=== PATIENT | female | born 1950 | race Caucasian/White ===

== ENCOUNTER 2021-09-24 00:51 | Inpatient (IN) | payer OTHER ==
[2021-09-24 01:38] LABS: Absolute Lymphocytes (CBC) 0.9 K/uL (0.7-4.9); Basophils % 0.2 % (0-1.3); Hematocrit 41.8 % (36.0-45.0); Lymphocytes % 10.6 % (15.3-44.8); MPV 8.8 fL (7.6-11.3); RBC Red Blood Cell Count 4.69 M/uL (3.86-4.86)
[2021-09-24 02:04] LABS: BUN Blood Urea Nitrogen 22 mg/dL (7-18); Bicarbonate 36 mmol/L (21-32); Glucose Level 102 mg/dL (74-106); Magnesium 2.1 mg/dL (1.8-2.4); NT PRO-BNP 499 pg/mL (<125); Potassium 3.8 mmol/L (3.5-5.1); Sodium Level 140 mmol/L (136-145); Thyroid Stimulating Hormone 0.571 uIU/mL (0.360-3.740); Troponin (Emerg Dept Use Only) < 0.02 ng/mL (0.0-0.045)
[2021-09-24 02:34] LABS: Urine Blood Trace-intact (Negative); Urine Glucose Negative (Negative); Urine Protein Negative (Negative); Urine Specific Gravity 1.025 (1.005-1.030); Urine pH 6.5 (5.0-7.0)
[2021-09-24 02:50] LABS: Urine Urothelial Cells <5 /HPF (NONE SEEN)
[2021-09-24 02:51] LABS: Urine Bacteria >50 /HPF (<20); Urine RBC <5 /HPF (NONE SEEN)
[2021-09-24] MEDS ORDERED: CEFTRIAXONE 1000 MG/VIAL ONE (02:51)
--- NOTE | 2021-09-24 03:00 | EDPHYS ---
Physician Documentation [facility] Name: Noelle Cummings Age: 71 yrs Sex: Female : 1950 Arrival Date: 09/24/2021 Time: 00:52 Bed 25 Private MD: ED Physician Neil Huston HPI: 09/24 01:01 This 71 yrs old Female presents to ER via Unassigned with complaints of rn weakness, tremor. 01:01 Reports yesterday began to feel generalized weakness with tremors in all 4 extremities. rn Reports took eliquis for first time the last 2 days and wasn't sure if this was the culprit. Reports generalized weakness and fatigue with coarse intention tremor that she has never had. No fever/cough/sob/abd pain. . Onset: The symptoms/episode began/occurred yesterday. Severity of symptoms: At their worst the symptoms were moderate in the emergency department the symptoms are unchanged. The patient has not experienced similar symptoms in the past. The patient has been recently seen by a physician:. Historical: - Allergies: 01:51 No Known Allergies; mr2 - Home Meds: 01:51 Diovan 40 mg Oral tab [Active]; gabapentin oral [Active]; Aspirin Oral [Active]; mr2 Clonidine Oral [Active]; Metoprolol Tartrate Oral [Active]; OxyContin Oral [Active]; Eliquis oral [Active]; - Immunization history:: Adult Immunizations up to date. - Social history:: Smoking status: Patient/guardian denies using tobacco. - Family history:: not pertinent. - Hospitalizations: : No recent hospitalization is reported. ROS: 01:01 Constitutional: Negative for fever, chills, and weight loss, Eyes: Negative for injury, rn pain, redness, and discharge, Neck: Negative for injury, pain, and swelling, Cardiovascular: Negative for chest pain, palpitations Respiratory: Negative for shortness of breath, cough, wheezing, and pleuritic chest pain, Abdomen/GI: Negative for abdominal pain, nausea, vomiting, diarrhea, and constipation, Back: Negative for injury and pain, : Negative for injury, bleeding, discharge, and swelling, MS/Extremity: Negative for injury and deformity, Skin: Negative for injury, rash, and discoloration, Neuro: Negative for headache, numbness, tingling, and seizure. Exam: 01:01 Constitutional: Overweight female, no acute distress Head/Face: Normocephalic, rn atraumatic. Eyes: Periorbital areas with no swelling, redness, or edema. ENT: dry MM Cardiovascular: Irregular rhythm, regular rate Respiratory: Mild tachypnea, no retractions, speaking full sentences. Abdomen/GI: Soft, non-tender Skin: Warm, dry MS/ Extremity: Pulses equal, no cyanosis. Neurovascular intact. Full, normal range of motion. 1+ edema bilateral lower ext Neuro: Awake and alert, GCS 15, oriented to person, place, time, and situation. Cranial nerves II-XII grossly intact. Motor strength 4/5 in all extremities. Sensory grossly intact. coarse intention tremor bilateral upper ext, only present in lower extremities when trying to sit up Vital Signs: 01:00 BP 132 / 88; Pulse 82; Resp 19; Temp 98.4; Pulse Ox 99% on NC; Weight 107.95 kg; Height mr2 5 ft. (152.40 cm); Pain 3/10; 01:00 Body Mass Index 46.48 (107.95 kg, 152.40 cm) mr2 MDM: 00:53 Patient medically screened. rn 02:56 Differential Diagnosis sepsis, UTI, dehydration, metabolic derangement. Data reviewed: rn vital signs, nurses notes, lab test result(s), EKG, radiologic studies, plain films, and as a result, I will admit patient. Data interpreted: groundwater monitoring technician: rate is 82 beats/min, rhythm is normal sinus rhythm, regular, with no ectopy, Interpretation: normal rate, normal rhythm, Pulse oximetry: on room air is 99 %. Interpretation: normal. Counseling: I had a detailed discussion with the patient and/or guardian regarding: the historical points, exam findings, and any diagnostic results supporting the discharge/admit diagnosis, lab results, radiology results, the need for further work-up and treatment in the hospital. Response to treatment: the patient's symptoms have mildly improved after treatment. Admission orders: after a detailed discussion of the patient's condition and case, the admit orders are written by me. 02:56 ED course: Patient too weak to even sit up without assistance. Cannot walk. Combination rn of UTI and dehydration. Will admit to hospitalist service for IV antibiotics and further evaluation.. 09/24 00:56 Order name: CBC with Diff; Complete Time: 02:06 rn 09/24 00:56 Order name: Basic Metabolic Panel; Complete Time: 02:06 rn 09/24 00:56 Order name: Urine Culture rn 09/24 00:56 Order name: Urine Microscopic Only; Complete Time: 02:54 rn 09/24 00:56 Order name: BNP; Complete Time: 02:06 rn 09/24 00:56 Order name: Troponin (emerg Dept Use Only); Complete Time: 02:06 rn 09/24 00:56 Order name: Magnesium; Complete Time: 02:06 rn 09/24 00:56 Order name: TSH; Complete Time: 02:06 rn 09/24 00:56 Order name: T4 Free; Complete Time: 02:06 rn 09/24 00:56 Order name: Blood Culture Adult (2) rn 09/24 00:56 Order name: Procalcitonin; Complete Time: 02:43 rn 09/24 01:18 Order name: Lactate; Complete Time: 02:06 [facility] 09/24 02:29 Order name: COVID-19 SARS RT PCR (Document "Date of Onset" if Symptomatic) rn 09/24 02:33 Order name: Urine Dipstick-Ancillary; Complete Time: 02:43 EDMS 09/24 00:56 Order name: IV Start; Complete Time: 01:00 rn 09/24 00:56 Order name: Cardiac monitoring; Complete Time: 01:00 rn 09/24 00:56 Order name: O2 Sat Monitoring; Complete Time: 01:00 rn 09/24 00:56 Order name: Urine Dipstick-Ancillary (obtain specimen); Complete Time: 02:27 rn 09/24 00:56 Order name: EKG; Complete Time: 00:58 rn 09/24 00:56 Order name: EKG - Nurse/Tech; Complete Time: 01:00 rn 09/24 00:56 Order name: XRAY Chest (1 view) rn Administered Medications: 03:00 Drug: Rocephin (cefTRIAXone) 1 grams Route: IV; Rate: calculated rate; Site: left mr2 antecubital; 05:18 Follow up: IV Status: Completed infusion; IV Intake: 10ml df1 Disposition Summary: 09/24/21 02:59 Hospitalization Ordered Hospitalization Status: Inpatient Admission rn Provider: Stefan Huston rn Condition: Stable rn Problem: new rn Symptoms: have improved rn Bed/Room Type: Standard rn Location: Telemetry/MedSurg (Inpatient)(09/24/21 10:41) dw Room Assignment: 202(09/24/21 10:41) dw Diagnosis - UTI/ Urinary tract infection, site not specified rn - Tremor, unspecified rn - Muscle weakness (generalized) rn Forms: - Medication Reconciliation Form rn - SBAR form rn Signatures: Dispatcher [employer] EDMS Leyda Spangler RN RN Juanis Lopez RN RN Neil Blank MD MD rn Reynard, Mike RN RN mr2 Elizabeth Simmons df1 Corrections: (The following items were deleted from the chart) 03:19 02:59 Telemetry/MedSurg (Inpatient) rn mw 03:19 02:59 rn mw 10:41 03:19 BR ER HOLD mw dw 10:41 03:19 ERHOLD- mw
--- NOTE | 2021-09-24 03:00 | ER ---
Nurse's Notes [facility] Name: Noelle Cummings Age: 71 yrs Sex: Female : 1950 Arrival Date: 09/24/2021 Time: 00:52 Bed 25 Private MD: Diagnosis: UTI/ Urinary tract infection, site not specified;Tremor, unspecified;Muscle weakness (generalized) Presentation: 09/24 01:00 Chief complaint: Patient states: pt states she started a new med this week and has mr2 become shaky and weak when trying to walk or bear weight. Ebola Screen: Patient negative for fever greater than or equal to 101.5 degrees Fahrenheit, and additional compatible Ebola Virus Disease symptoms Patient denies exposure to infectious person. Patient denies travel to an Ebola-affected area in the 21 days before illness onset. Initial Sepsis Screen: Does the patient meet any 2 criteria? No. Patient's initial sepsis screen is negative. Does the patient have a suspected source of infection? No. Patient's initial sepsis screen is negative. Risk Assessment: Do you want to hurt yourself or someone else? Patient reports no desire to harm self or others. Onset of symptoms was September 18, 2021. 01:00 Method Of Arrival: EMS: [facility] mr2 01:00 Acuity: JAY 3 mr2 Triage Assessment: 01:51 General: Appears uncomfortable, Behavior is calm, cooperative. Pain: Denies pain. mr2 Historical: - Allergies: 01:51 No Known Allergies; mr2 - Home Meds: 01:51 Diovan 40 mg Oral tab [Active]; gabapentin oral [Active]; Aspirin Oral [Active]; mr2 Clonidine Oral [Active]; Metoprolol Tartrate Oral [Active]; OxyContin Oral [Active]; Eliquis oral [Active]; - Immunization history:: Adult Immunizations up to date. - Social history:: Smoking status: Patient/guardian denies using tobacco. - Family history:: not pertinent. - Hospitalizations: : No recent hospitalization is reported. Screenin:57 Abuse screen: Denies threats or abuse. Denies injuries from another. Nutritional mr2 screening: No deficits noted. Tuberculosis screening: No symptoms or risk factors identified. Fall Risk IV access (20 points). Ambulatory Aid- Crutches/Cane/Walker (15 pts). Gait- Impaired (20 pts.). Assessment: 01:57 Neuro: Reports weakness. Musculoskeletal: Reports weakness in right arm, left arm, mr2 right leg and left leg. 04:20 General: Patient placed in hospital bed.. tw5 Vital Signs: 01:00 BP 132 / 88; Pulse 82; Resp 19; Temp 98.4; Pulse Ox 99% on NC; Weight 107.95 kg; Height mr2 5 ft. (152.40 cm); Pain 3/10; 01:00 Body Mass Index 46.48 (107.95 kg, 152.40 cm) mr2 ED Course: 00:52 Patient arrived in ED. mw2 00:53 Neil Huston MD is Attending Physician. rn 01:00 No provider procedures requiring assistance completed. Inserted saline lock: 20 gauge mr2 in left antecubital area, using aseptic technique. 01:10 XRAY Chest (1 view) Sent. df1 01:12 XRAY Chest (1 view) In Process Unspecified. EDMS 01:46 Dale Paulson RN is Primary Nurse. mr2 01:51 Triage completed. mr2 01:51 Arm band placed on. mr2 01:57 Patient has correct armband on for positive identification. Call light in reach. Side mr2 rails up X2. Adult w/ patient. 02:27 Urine Microscopic Only Sent. df1 02:27 Urine Culture Sent. df1 02:59 Stefan Huston MD is Hospitalizing Provider. rn Administered Medications: 03:00 Drug: Rocephin (cefTRIAXone) 1 grams Route: IV; Rate: calculated rate; Site: left mr2 antecubital; 05:18 Follow up: IV Status: Completed infusion; IV Intake: 10ml df1 Intake: 05:18 IV: 10ml; Total: 10ml. df1 Outcome: 02:59 Decision to Hospitalize by Provider. rn 12:40 Patient left the ED. iw Signatures: Dispatcher [employer] EDMS Naz Molina RN RN iw Neil Huston MD MD rn [place], MyKena mw2 Dale Paulson RN RN mr2 MoriscjElizabeth df1 Adriana Hicks tw5 Corrections: (The following items were deleted from the chart) 14:03 01:00 Coronavirus screen: Vaccine status: Patient reports receiving the 2nd dose of the iw covid vaccine. mr2
--- NOTE | 2021-09-24 03:59 | P.HP ---
Certification for Inpatient Patient admitted to: Observation With expected LOS: <2 Midnights Patient will require the following post-hospital care: None Practitioner: I am a practitioner with admitting privileges, knowledge of patient current condition, hospital course, and medical plan of care. Services: Services provided to patient in accordance with Admission requirements found in Title 42 Section 412.3 of the Code of Federal Regulations <Julio COswaldo Still - Last Filed: 09/24/21 03:51> Patient History Date of Service: 09/24/21 Primary Care Provider: Unknown Dr. galina Rivera Reason for admission: UTI, weakness History of Present Illness: 71-year-old female with history of atrial fibrillation on chronic anticoagulation, hypertension, chronic pain presents emergency department for chills/tremors. Patient reports symptoms began today, does report that she had urinary symptoms approximate 1 week ago that resolved. Patient was evaluated in the emergency department labs were significant for CO2 36 BUN 22 GFR 89 BNP 499 urinalysis with greater than 50 bacteria nitrite +1+ leukoesterase Covid test negative chest x-ray appears to be unremarkable at this time. Plan was for discharge from emergency room but patient extremely weak, unable to sit up without assistance or ambulate. ED provider wishes to admit under observation for UTI, weakness. - Past Medical/Surgical History -: A. fib on chronic anticoagulation therapy -: Hypertension -: Chronic pain -: Back surgery -: Hip surgery Psychosocial/ Personal History: Patient lives at home, has some family members living with her as well - Family History Mother -: Cancer Father -: Heart disease, Stroke Sister -: Cancer - Social History Smoking Status: Never smoker Alcohol use: No CD- Drugs: No Caffeine use: Yes Place of Residence: Home <Oswaldo Bunch - Last Filed: 09/24/21 03:51> Date of Service: 09/24/21 <Stefan Huston - Last Filed: 09/24/21 13:38> Allergies No Known Allergies Allergy (Verified 09/24/21 05:19) Review of Systems 10-point ROS is otherwise unremarkable General: Chills, Weakness, Malaise <Oswaldo Bunch - Last Filed: 09/24/21 03:51> Physical Examination - Physical Exam General: Alert, In no apparent distress, Obese HEENT: Atraumatic, PERRLA, Mucous membr. moist/pink, EOMI, Sclerae nonicteric Neck: Supple, 2+ carotid pulse no bruit, No LAD, Without JVD or thyroid abnormality Respiratory: Clear to auscultation bilaterally, Normal air movement Cardiovascular: Regular rate/rhythm, Normal S1 S2 Gastrointestinal: Normal bowel sounds, No tenderness Musculoskeletal: No tenderness Integumentary: No rashes Neurological: Normal speech, Normal strength at 5/5 x4 extr, Normal tone, Normal affect - Studies Laboratory Data (last 24 hrs) 09/24/21 01:00: Sodium 140, Potassium 3.8, BUN 22 H, Creatinine 0.65, Glucose 102, Magnesium 2.1 09/24/21 01:00: WBC 8.10, Hgb 13.3, Hct 41.8, Plt Count 176 <Oswaldo Bunch - Last Filed: 09/24/21 03:51> - Studies Laboratory Data (last 24 hrs) 09/24/21 01:00: Sodium 140, Potassium 3.8, BUN 22 H, Creatinine 0.65, Glucose 102, Magnesium 2.1 09/24/21 01:00: WBC 8.10, Hgb 13.3, Hct 41.8, Plt Count 176 <Stefan Huston - Last Filed: 09/24/21 13:38> Assessment and Plan - Plan Assessment: Generalized weakness, malaise secondary to urinary tract infection Atrial fibrillation on chronic anticoagulation therapy Hypertension chronic pain Plan: Generalized weakness, malaise secondary to urinary tract infection: Continue with IV Rocephin, urine cultures obtained. Will have patient up with physical therapy. Patient reports that whenever she becomes ill she has episodes like this where she becomes extremely weak. Patient would likely benefit from home health with physical therapy, will await further recommendations from physical therapy evaluation. Atrial fibrillation on chronic anticoagulation therapy: Continue metoprolol and Eliquis. Monitor on telemetry, rate controlled at this time. Hypertension: Continue metoprolol, obtain verify other home medications. chronic pain: Continue with Rochelle at this time, obtain verify home medications. Patient reports that she takes oxycodone 7.5 mg. We will need to verify. DVT PPX: Continue Eliquis Code status: Full code Discharge Plan: Home Plan to discharge in: 24 Hours - Advance Directives Does patient have a Living Will: No Does patient have a Durable POA for Healthcare: No - Code Status/Comfort Care Code Status Assessed: Yes (full code) Critical Care: No Time Spent Managing Pts Care (In Minutes): 55 <Oswaldo Bunch - Last Filed: 09/24/21 03:51> - Plan Patient seen and examined on rounds this morning. Patient reports feeling slight improvement, however has not tried to get out of bed yet. Reports felt like her muscles are giving out under concerned about going home Physical therapy consulted patient may need home health /PT vs SNF <Stefan Huston - Last Filed: 09/24/21 13:38>
[2021-09-24] MEDS ORDERED: HYDROCODONE/APAP 7.5/325 MG TAB PO PRN (05:10)
[2021-09-24] MEDS ORDERED: ACETAMINOPHEN 500 MG TAB PO PRN (05:10)
[2021-09-24] MEDS ORDERED: ONDANSETRON 4 MG/2 ML VIAL IV PRN (05:10)
[2021-09-24] MEDS ORDERED: METOPROLOL TAR 25 MG TAB PO SCH (06:00)
--- NOTE | 2021-09-24 08:46 | RAD REPORT ---
EXAM DESCRIPTION: RAD - Chest Single View - 09/24/2021 1:11 am CLINICAL HISTORY: weakness Chest pain. COMPARISON: No comparisons FINDINGS: Portable technique limits examination quality. Mild pulmonary edema suspected. The heart is mildly enlarged in size. No displaced fractures. IMPRESSION: Mild CHF versus volume overload.
[2021-09-24] MEDS ORDERED: CEFTRIAXONE 1 GM/NS 50 ML 1 GM/50 ML BAG IV SCH (09:00)
[2021-09-24] MEDS: METOPROLOL TAR 25 MG TAB PO SCH ×2 (09:00→19:58)
[2021-09-24] MEDS: APIXABAN 5 MG TABLET PO SCH ×3 (09:00→19:58)
[2021-09-24] MEDS ORDERED: POTASSIUM CL SA 10 MEQ TAB PO ONE ×2 (09:12→09:30)
[2021-09-24] MEDS ORDERED: METOPROLOL TAR 25 MG TAB ONE (09:30)
[2021-09-24] MEDS ORDERED: APIXABAN 5 MG TABLET ONE (09:30)
[2021-09-24 13:52] VITALS: BMI 46.3
[2021-09-24] MEDS ORDERED: PNEUMOCOCCAL VACCINE 0.5 ML IMVAC ONE (14:00)
[2021-09-24] MEDS: CEFTRIAXONE 1 GM/NS 50 ML 1 GM/50 ML BAG IV SCH (19:58)
[2021-09-25] MEDS ORDERED: VANCOMYCIN/NS 1 gm 1 GM/250 ML BAG IVPB SCH (04:30)
[2021-09-25] MEDS ORDERED: VANCOMYCIN 1 GM/VIAL ONE (04:49)
[2021-09-25] MEDS ORDERED: VANCOMYCIN 2 GM in NA CHLORIDE 0.9% 500 ML IVPB SCH (05:00)
[2021-09-25 05:40] LABS: Absolute Lymphocytes (CBC) 1.5 K/uL (0.7-4.9); Basophils % 0.4 % (0-1.3); Hematocrit 42.6 % (36.0-45.0); Lymphocytes % 23.1 % (15.3-44.8); MPV 8.8 fL (7.6-11.3); RBC Red Blood Cell Count 4.85 M/uL (3.86-4.86)
--- NOTE | 2021-09-25 06:01 | P.PN ---
Date of Service: 09/25/21 Subjective: No acute events overnight. Patient reports feeling better, little more energy, able to move around in bed little bit more. Has not gotten up out of bed yet this morning Worked with physical therapy yesterday, they recommended inpatient rehab. Patient unsure, states she is open to the idea, but would prefer to go home if she improves enough. Blood cultures all preliminary positive for gram-positive cocci continues with chronic pain /neuropathy ROS: 10 point ROS as noted above, otherwise negative Physical exam GEN: Alert, oriented, NAD HEENT: Normal conjunctiva, sclera anicteric CV: Regular rate and rhythm, no edema Pulm: Nonlabored respiration on 2L NC ABD: Soft, nontender, nondistended MSK: No joint tenderness Neuro: Normal speech, normal affect Problem List Generalized weakness, malaise secondary to urinary tract infection Atrial fibrillation on chronic anticoagulation therapy Hypertension chronic pain Chronic neuropathy Continue Rocephin, urine culture growing gram-negative rods Blood cultures growing gram-positive cocci, suspect contamination since it is different than was grown in her urine. Infectious disease consulted Repeat blood culture today Empirically started on vancomycin overnight Otherwise she feels that she is making some improvement Physical therapy evaluated her yesterday, recommend inpatient rehab. Patient was open to the idea, however would prefer to go home She wants to see how she does with physical therapy today since she is feeling better Continue home metoprolol, Eliquis, telemetry, home pain medicationoxycodone/gabapentin VTE: Eliquis Code: full Dispo: inpatient rehab consulted, anticipate DC in 1-2 days, pending culture results Time Spent Managing Pts Care (In Minutes): 35
[2021-09-25 06:02] LABS: ALT/SGPT 17 U/L (12-78); AST/SGOT 17 U/L (15-37); Albumin 3.1 g/dL (3.4-5.0); Alkaline Phosphatase 52 U/L (45-117); BUN Blood Urea Nitrogen 14 mg/dL (7-18); Bicarbonate 32 mmol/L (21-32); Bilirubin Total 0.4 mg/dL (0.2-1.0); Glucose Level 106 mg/dL (74-106); Potassium 3.7 mmol/L (3.5-5.1); Sodium Level 140 mmol/L (136-145)
[2021-09-25] MEDS: APIXABAN 5 MG TABLET PO SCH ×2 (08:00→19:49)
[2021-09-25] MEDS: METOPROLOL TAR 25 MG TAB PO SCH ×2 (08:01→19:50)
[2021-09-25] MEDS ORDERED: KCL 20 MEQ/100 mL IVPB 20 MEQ/100 ML BAG IV SCH (09:00)
[2021-09-25] MEDS ORDERED: POTASSIUM CL SA 10 MEQ TAB PO ONE (09:00)
[2021-09-25] MEDS: GABAPENTIN 300 MG CAP PO SCH ×3 (09:12→19:49)
[2021-09-25] MEDS: FLUOXETINE 10 MG CAP PO SCH ×2 (09:12→19:49)
--- NOTE | 2021-09-25 10:00 | P.CNS ---
Date of Consult: 09/25/21 Primary Care Provider: Unknown Dr. galina Rivera Chief Complaint: UTI, weakness History of Present Illness: The patient is a 71-year-old female with a past medical history of atrial fibrillation on chronic anticoagulation, hypertension, and chronic pain who pres ented to the emergency department secondary to chills/tremors. Of note patient also reported urinary symptoms approximately 1 week ago which she states has since resolved. In the ED labs are significant for CO2 of 36, BUN 22, GFR 89, and urinalysis with positive bacteria nitrates and leuk esterase. The initial plan was for the patient to be discharged however due to extreme weakness she was admitted for further observation. Blood cultures obtained on 09/24 grew gram-positive cocci, urine culture growing gram-negative rods. Repeat blood cultures pending. Patient empirically started on vancomycin and Rocephin. Patient currently denies shortness of breath, chest pain, nausea/vomiting/diarrhea/dysuria/urinary frequency/urgency. Patient reports chronic pain 2 pack/hips. Allergies No Known Allergies Allergy (Verified 09/24/21 05:19) Home Medications: ALPRAZolam [Xanax*] 0.5 mg PO TID 09/24/21 Apixaban [Eliquis] 5 mg PO BID 09/24/21 Cyclobenzaprine HCl [Flexeril] 5 mg PO BID PRN 09/24/21 Fluoxetine HCl [Prozac] 30 mg PO BID 09/24/21 Fluticasone/Salmeterol [Advair 250-50 Diskus] 1 puff IH BID 09/24/21 Gabapentin [Neurontin] 800 mg PO QID 09/24/21 Ipratropium/Albuterol Sulfate [Combivent Respimat 20-100 Mcg] 2 puff IH TID 09/24/21 Metoprolol Tartrate [Lopressor*] 50 mg PO BID 09/24/21 Oxycodone HCl/Acetaminophen [Oxycodone-Acetaminophn 7.5-325] 1 tab PO TID PRN 09/24/21 Tiotropium [place] [Spiriva] 2 puff IH BID 09/24/21 Valsartan/Hydrochlorothiazide [Diovan Hct 160-12.5 mg Tab] 1 tab PO BID 09/24/21 cloNIDine HCL [Clonidine HCl] 0.1 mg PO Q6H PRN 09/24/21 hydroCHLOROthiazide [Hydrochlorothiazide*] 1 cap PO DAILY 09/24/21 - Past Medical/Surgical History -: A. fib on chronic anticoagulation therapy -: Hypertension -: Chronic pain -: COPD -: Back surgery -: Lt hip surgery with titanium plate -: Back surgery -: Hip surgery Psychosocial/ Personal History: Patient lives at home, has some family members living with her as well - Family History Mother Medical History: Cancer Father Medical History: Heart disease, Stroke Sister Medical History: Cancer - Social History Alcohol use: No CD- Drugs: No Caffeine use: No Place of Residence: Home Review of Systems 10-point ROS is otherwise unremarkable Physical Examination Temp Pulse Resp BP Pulse Ox 97.3 F 65 20 131/56 L 95 09/25/21 08:00 09/25/21 08:01 09/25/21 09:02 09/25/21 08:01 09/25/21 09:02 General: Alert, In no apparent distress, Obese HEENT: Atraumatic, Normocephalic Neck: Supple, 2+ carotid pulse no bruit Respiratory: Clear to auscultation bilaterally, Normal air movement Cardiovascular: No edema, Normal pulses, Regular rate/rhythm Gastrointestinal: Normal bowel sounds, Soft and benign Musculoskeletal: No clubbing, No swelling, No contractures Integumentary: Other (Left breast skin fold skin candidiasis) Neurological: Normal speech, Sensation intact Laboratory Data (last 24 hrs) 09/25/21 05:13: Sodium 140, Potassium 3.7, BUN 14, Creatinine 0.63, Glucose 106, Total Bilirubin 0.4, AST 17, ALT 17, Alkaline Phosphatase 52 09/25/21 05:13: WBC 6.40 D, Hgb 13.8, Hct 42.6, Plt Count 168 Conclusions/Impression: Antibiotics: Vancomycin Start: 09/25 Rocephin Start: 09/24 Assessment/plan Gram-positive bacteremia Blood cultures obtained on 09/24 growing gram-positive cocci, awaiting full report. Continue empiric vancomycin at this time with a trough goal of 12-17. Repeat blood cultures obtained on 09/25 pending. Due to patient's clinical condition and lack of temperature, sepsis, or leukocytosis positive blood cultures could possibly be contamination. Urinary tract infection Urine culture growing a gram-negative rods, awaiting full report. Continue IV Rocephin will tailor antibiotics based off full culture report. Patient will need antibiotics for 5-7 days. Left breast skin fold skin candidiasis Continue nystatin powder for 1 week. Protein caloric malnutrition Recommend supplemental Ensure protein drinks Medical management per primary team Plan of care discussed with Dr. hernandez Thank you for consultation.
[2021-09-25] MEDS ORDERED: NYSTATIN PWDR 100000 UNIT/GM TOP PRN (10:06)
[2021-09-25] MEDS ORDERED: VANCOMYCIN/NS 1 gm 1 GM/250 ML BAG IVPB ONE (10:30)
--- NOTE | 2021-09-25 11:24 | EKG ---
Test Date: 2021-09-24 Test Time: 00:46:11 Lead Dental Assistant: JAKE MEASUREMENT RESULTS: Intervals: Rate: 83 WY: 140 QRSD: 66 QT: 390 QTc: 458 [place]: P: 80 WY: 140 QRS: 51 T: 58 INTERPRETIVE STATEMENTS: Normal sinus rhythm with sinus arrhythmia Normal ECG No previous ECG available for comparison Electronically Signed On 09-25-21 11:20:41 HAZARDOUS SUBSTANCES SCIENTIST by Adama Anthony
--- NOTE | 2021-09-25 11:24 | EKG ---
Test Date: 2021-09-24 Test Time: 01:06:14 Tobacco Drying Machine Operator: JOLEEN MEASUREMENT RESULTS: Intervals: Rate: 76 TN: 142 QRSD: 66 QT: 362 QTc: 407 [place]: P: 108 TN: 142 QRS: 56 T: 52 INTERPRETIVE STATEMENTS: Sinus rhythm with premature supraventricular complexes Nonspecific T wave abnormality Abnormal ECG Compared to ECG 09/24/2021 00:46:11 Atrial premature complex(es) now present T-wave abnormality now present Sinus arrhythmia no longer present Electronically Signed On 09-25-21 11:20:39 SERICULTURIST by Adama Anthony
[2021-09-25] MEDS: LACTOBACILLUS/ACIDOPHILUS TAB PO SCH (19:49)
[2021-09-25] MEDS: CEFTRIAXONE 1 GM/NS 50 ML 1 GM/50 ML BAG IV SCH (19:49)
[2021-09-26] MEDS ORDERED: VANCOMYCIN 2 GM in NA CHLORIDE 0.9% 500 ML IVPB SCH (05:00)
--- NOTE | 2021-09-26 05:53 | P.PN ---
Date of Service: 09/26/21 Subjective: No acute events overnight. Overall improving, feeling better Continues with generalized weakness, unsteadiness, working with physical therapy. Very motivated Looking to go to inpatient rehab when approved Remains afebrile, blood cultures growing staph epidermidis, no source of infection for this, repeat blood culture negative ROS: 10 point ROS as noted above, otherwise negative Physical exam GEN: Alert, oriented, NAD HEENT: Normal conjunctiva, sclera anicteric CV: Regular rate and rhythm, no edema Pulm: Nonlabored respiration on 2L NC ABD: Soft, nontender, nondistended MSK: No joint tenderness Integumentary: mild intertrigo under L breast Neuro: Normal speech, normal affect Problem List Generalized weakness, malaise secondary to urinary tract infection Paroxysmal atrial fibrillation on Eliquis Left breast intertrigo Hypertension chronic pain Chronic neuropathy Continue Rocephin, urine culture growing pansensitive E. coli. Blood cultures grew gram-positive cocci, speciation staph epidermidis Infectious disease consulted, in agreement that this is contaminant. Repeat blood culture was obtained 1-2 hours after initial dose of vancomycin and is remained negative We will discontinue empiric vancomycin Patient reports continued improvement Continues to work with physical therapy, which are recommending inpatient rehab Continue home metoprolol, Eliquis, telemetry, home pain medica tionoxycodone/gabapentin VTE: Eliquis Code: full Dispo: inpatient rehab once approved Time Spent Managing Pts Care (In Minutes): 35
[2021-09-26 06:01] LABS: Absolute Lymphocytes (CBC) 1.6 K/uL (0.7-4.9); Basophils % 0.8 % (0-1.3); Hematocrit 42.5 % (36.0-45.0); Lymphocytes % 27.6 % (15.3-44.8); MPV 8.9 fL (7.6-11.3); RBC Red Blood Cell Count 4.78 M/uL (3.86-4.86)
[2021-09-26 06:21] LABS: Albumin 3.1 g/dL (3.4-5.0); Bilirubin Total 0.3 mg/dL (0.2-1.0); Protein, Total 7.1 g/dL (6.4-8.2)
[2021-09-26 06:22] LABS: Potassium 3.8 mmol/L (3.5-5.1)
[2021-09-26] MEDS: FLUOXETINE 10 MG CAP PO SCH (08:49)
[2021-09-26] MEDS: LACTOBACILLUS/ACIDOPHILUS TAB PO SCH (08:50)
[2021-09-26] MEDS: GABAPENTIN 300 MG CAP PO SCH ×2 (08:50→14:17)
[2021-09-26] MEDS: METOPROLOL TAR 25 MG TAB PO SCH (08:51)
[2021-09-26] MEDS: APIXABAN 5 MG TABLET PO SCH (08:52)
[2021-09-26] MEDS ORDERED: KCL 20 MEQ/100 mL IVPB 20 MEQ/100 ML BAG IV SCH (09:00)
[2021-09-26 10:05] VITALS: O2SAT 97
--- NOTE | 2021-09-26 11:20 | P.PN ---
Subjective Date of Service: 09/26/21 Primary Care Provider: Unknown Dr. galina Rivera Chief Complaint: UTI, weakness Patient seen examined at bedside, blood cultures growing Staph epi likely contamination. Repeat blood culture showed no growth at @24hr. Based on patient's clinical picture,there is low clinical suspicion for true bacteremia. As such recommend discontinuing vancomycin. Patient states she is feeling well today and denies any acute complaints. Review of Systems 10-point ROS is otherwise unremarkable Physical Examination - Vital Signs Temperature: 97.5 F Blood Pressure: 113/63 Pulse: 64 Respirations: 15 Pulse Ox (%): 97 - Studies Laboratory Last Values WBC 6.40 K/uL (4.3-10.9) D 09/25/21 05:13 RBC 4.85 M/uL (3.86-4.86) 09/25/21 05:13 Hgb 13.8 g/dL (12.0-15.0) 09/25/21 05:13 Hct 42.6 % (36.0-45.0) 09/25/21 05:13 MCV 87.8 fL (80-100) 09/25/21 05:13 MCH 28.5 pg (27.0-35.0) 09/25/21 05:13 MCHC 32.4 g/dL (32.0-36.0) 09/25/21 05:13 RDW 13.9 % (12.1-15.2) 09/25/21 05:13 Plt Count 168 K/uL (152-406) 09/25/21 05:13 MPV 8.8 fL (7.6-11.3) 09/25/21 05:13 Neutrophils % 63.6 % (41.7-73.7) 09/25/21 05:13 Lymphocytes % 23.1 % (15.3-44.8) 09/25/21 05:13 Monocytes % 11.9 % (3.3-12.3) 09/25/21 05:13 Eosinophils % 1.0 % (0-4.4) 09/25/21 05:13 Basophils % 0.4 % (0-1.3) 09/25/21 05:13 Absolute Neutrophils 4.1 K/uL (1.8-8.0) 09/25/21 05:13 Absolute Lymphocytes 1.5 K/uL (0.7-4.9) 09/25/21 05:13 Absolute Monocytes 0.8 K/uL (0.1-1.3) 09/25/21 05:13 Absolute Eosinophils 0.1 K/uL (0-0.5) 09/25/21 05:13 Absolute Basophils 0.0 K/uL (0-0.5) 09/25/21 05:13 Sodium 140 mmol/L (136-145) 09/25/21 05:13 Potassium 3.7 mmol/L (3.5-5.1) 09/25/21 05:13 Chloride 102 mmol/L (98-107) 09/25/21 05:13 Carbon Dioxide 32 mmol/L (21-32) 09/25/21 05:13 BUN 14 mg/dL (7-18) 09/25/21 05:13 Creatinine 0.63 mg/dL (0.55-1.3) 09/25/21 05:13 Estimated GFR > 90 mL/min (=/>90) 09/25/21 05:13 Glucose 106 mg/dL (74-106) 09/25/21 05:13 Lactic Acid 1.0 mmol/L (0.4-2.0) 09/24/21 01:00 Calcium 9.2 mg/dL (8.5-10.1) 09/25/21 05:13 Magnesium 2.1 mg/dL (1.8-2.4) 09/24/21 01:00 Total Bilirubin 0.4 mg/dL (0.2-1.0) 09/25/21 05:13 AST 17 U/L (15-37) 09/25/21 05:13 ALT 17 U/L (12-78) 09/25/21 05:13 Alkaline Phosphatase 52 U/L (45-117) 09/25/21 05:13 Rapid Troponin I < 0.02 ng/mL (0.0-0.045) 09/24/21 01:00 NT-Pro-B Natriuret Pep 499 pg/mL (<125) H 09/24/21 01:00 Serum Total Protein 7.0 g/dL (6.4-8.2) 09/25/21 05:13 Albumin 3.1 g/dL (3.4-5.0) L 09/25/21 05:13 Globulin 3.9 g/dL (2.3-3.5) H 09/25/21 05:13 Albumin/Globulin Ratio 0.8 (1.1-1.8) L 09/25/21 05:13 Procalcitonin < 0.05 ng/mL (<0.050) 09/24/21 01:00 TSH 1.010 uIU/mL (0.360-3.740) 09/25/21 05:13 Free T4 0.93 ng/dL (0.76-1.46) 09/24/21 01:00 Urine pH 6.5 (5.0-7.0) 09/24/21 02:30 Ur Specific [place] 1.025 (1.005-1.030) 09/24/21 02:30 Glucose (UA)(Auto) Negative (Negative) 09/24/21 02:30 Urine Ketones Negative (Negative) 09/24/21 02:30 Urine Blood Trace-intact (Negative) H 09/24/21 02:30 Urine Nitrite Positive (Negative) H 09/24/21 02:30 Ur Leukocyte Esterase 1+ (Negative) H 09/24/21 02:30 Urine RBC <5 /HPF (NONE SEEN) 09/24/21 00:45 Urine WBC >50 /HPF (<5) H 09/24/21 00:45 Ur Squamous Epith Cells <5 /HPF (NONE SEEN) 09/24/21 00:45 Ur Urothelial Cells <5 /HPF (NONE SEEN) 09/24/21 00:45 Urine Bacteria >50 /HPF (<20) H 09/24/21 00:45 Urine Culture Reflexed Not needed 09/24/21 00:45 Urine Total Protein Negative (Negative) 09/24/21 02:30 SARS-CoV-2 Rap RNA(RT-PCR) Negative (NEGATIVE) 09/24/21 02:35 Microbiology Data (last 24 hrs): 09/24/21 00:45 Catheterized Urine [place] Count - Final >100,000 CFU/ML. 09/24/21 00:45 Catheterized Urine - Final Escherichia Coli Gram Neg Umesh 09/24/21 01:00 Blood - Blood Blood Culture Gram Stain - Final 09/24/21 01:00 Blood - Blood Gram Stain - Final 09/24/21 00:45 Blood - Blood Aerobic Blood Culture - Final Staph Epidermidis 09/24/21 00:45 Blood - Blood Blood Culture Gram Stain - Final 09/24/21 00:45 Blood - Blood Anaerobic Blood Culture - Final Staph Epidermidis 09/24/21 00:45 Blood - Blood Gram Stain - Final Assessment And Plan - Plan Physical exam: General: Alert, In no apparent distress, Obese HEENT: Atraumatic, Normocephalic Neck: Supple, 2+ carotid pulse no bruit Respiratory: Clear to auscultation bilaterally, Normal air movement Cardiovascular: No edema, Normal pulses, Regular rate/rhythm Gastrointestinal: Normal bowel sounds, Soft and benign Musculoskeletal: No clubbing, No swelling, No contractures Integumentary: Other (Left breast skin fold skin candidiasis) Neurological: Normal speech, Sensation intact Conclusions/Impression: Antibiotics: Vancomycin Start: 09/25 Rocephin Start: 09/24 Assessment/plan Gram-positive bacteremia Blood cultures obtained on 09/24 grew Staph epi, likely contamination. Repeat blood culture show no growth at 24 hr. Recommend discontinuing vancomycin. Urinary tract infection Urine culture growing navarrete-sensitive E coli. Recommend continuing IV Rocephin for duration of hospital stay, can send home on oral Augmentin. Left breast skin fold skin candidiasis Continue nystatin powder for 1 week. Protein caloric malnutrition Recommend supplemental Ensure protein drinks Medical management per primary team Plan of care discussed with Dr. hernandez Thank you for consultation.
--- NOTE | 2021-09-26 16:18 | P.DS ---
Admission Date: 09/25/21 Discharge Date: 09/26/21 Primary Care Provider: Unknown Dr. galina Rivera Disposition: TRANSFER TO INPATIENT REHAB Discharge Condition: GOOD Reason for Admission: UTI, weakness Consultations: ID - Dr. Robbins Procedures: CXR (09/24): FINDINGS: Portable technique limits examination quality. Mild pulmonary edema suspected. The heart is mildly enlarged in size. No displaced fractures. IMPRESSION: Mild CHF versus volume overload. Problem List Generalized weakness, malaise secondary to urinary tract infection Paroxysmal atrial fibrillation on Eliquis Left breast intertrigo Hypertension chronic pain Chronic neuropathy Brief History of Present Illness: 71-year-old female with history of atrial fibrillation on chronic anticoagulation, hypertension, chronic pain presents emergency department for chills/tremors. Patient reports symptoms began today, does report that she had urinary symptoms approximate 1 week ago that resolved. Patient was evaluated in the emergency department labs were significant for CO2 36 BUN 22 GFR 89 BNP 499 urinalysis with greater than 50 bacteria nitrite +1+ leukoesterase Covid test negative chest x-ray appears to be unremarkable at this time. Plan was for discharge from emergency room but patient extremely weak, unable to sit up without assistance or ambulate. ED provider wishes to admit under observation for UTI, weakness. Hospital Course: Empirically treated with Rocephin. Urine culture grew navarrete-sensitive E. coli. Blood cultures from admission grew staph epidermidis. Initially placed on vancomycin empirically when prelim result revealed gram positive cocci. Repeat blood culture obtained ~1.5 hrs after first vanc dose remained negative. Infectious Disease was consulted and agreed that this was very likely contaminant and did not warrant treatment. She did not have any other source for a possible staph epidermidis infection. She was evaluated by PT and recommended for inpatient rehab. She had continued improvement and was discharged to inpatient rehab to complete 7 day course of Augmentin, and to complete course of nystatin for her left breast intertrigo. Vital Signs/Physical Exam: Physical exam GEN: Alert, oriented, NAD HEENT: Normal conjunctiva, sclera anicteric CV: Regular rate and rhythm, no edema Pulm: Nonlabored respirations ABD: Soft, nontender, nondistended MSK: No joint tenderness Integumentary: mild intertrigo under L breast Neuro: Normal speech, normal affect Temp Pulse Resp BP Pulse Ox 97.5 F 64 16 113/63 97 11/11/21 12:00 09/26/21 12:00 09/26/21 12:00 09/26/21 12:00 09/26/21 12:00 Laboratory Data at Discharge: WBC 5.80 K/uL (4.3-10.9) 09/26/21 05:40 Hgb 13.8 g/dL (12.0-15.0) 09/26/21 05:40 Hct 42.5 % (36.0-45.0) 09/26/21 05:40 Plt Count 174 K/uL (152-406) 09/26/21 05:40 Sodium 139 mmol/L (136-145) 09/26/21 05:40 Potassium 3.8 mmol/L (3.5-5.1) 09/26/21 05:40 BUN 12 mg/dL (7-18) 09/26/21 05:40 Creatinine 0.71 mg/dL (0.55-1.3) 09/26/21 05:40 Glucose 109 mg/dL (74-106) H 09/26/21 05:40 Magnesium 2.1 mg/dL (1.8-2.4) 09/24/21 01:00 Total Bilirubin 0.3 mg/dL (0.2-1.0) 09/26/21 05:40 AST 22 U/L (15-37) 09/26/21 05:40 ALT 20 U/L (12-78) 09/26/21 05:40 Alkaline Phosphatase 49 U/L (45-117) 09/26/21 05:40 Home Medications: ALPRAZolam [Xanax*] 0.5 mg PO TID 09/24/21 Apixaban [Eliquis] 5 mg PO BID 09/24/21 Cyclobenzaprine HCl [Flexeril] 5 mg PO BID PRN 09/24/21 Fluoxetine HCl [Prozac] 30 mg PO BID 09/24/21 Fluticasone/Salmeterol [Advair 250-50 Diskus] 1 puff IH BID 09/24/21 Gabapentin [Neurontin] 800 mg PO QID 09/24/21 Ipratropium/Albuterol Sulfate [Combivent Respimat 20-100 Mcg] 2 puff IH TID 09/24/21 Metoprolol Tartrate [Lopressor*] 50 mg PO BID 09/24/21 Oxycodone HCl/Acetaminophen [Oxycodone-Acetaminophn 7.5-325] 1 tab PO TID PRN 09/24/21 Tiotropium [place] [Spiriva] 2 puff IH BID 09/24/21 Valsartan/Hydrochlorothiazide [Diovan Hct 160-12.5 mg Tab] 1 tab PO BID 09/24/21 cloNIDine HCL [Clonidine HCl] 0.1 mg PO Q6H PRN 09/24/21 hydroCHLOROthiazide [Hydrochlorothiazide*] 1 cap PO DAILY 09/24/21 Amoxicillin/Potassium Clav [Augmentin 875-125 Tablet] 1 each PO BID 5 Days #10 tablet 09/26/21 Nystatin Powder [Mycostatin (Powder)*] 1 appl TOP DAILY PRN btl 09/26/21 New Medications: Amoxicillin/Potassium Clav [Augmentin 875-125 Tablet] 1 each PO BID 5 Days #10 tablet Followup: Ha Hung MD [ASSOCIATE-ACTIVE - CAN ADMIT] - Unknown,U [Primary Care Provider] - Time spent managing pt's care (in minutes): 45
[2021-09-26 16:28] VITALS: BP 111/61; TEMP 97.2
--- OUTSIDE RECORDS SUMMARY | 2021-09-28 17:35 | XMS REPORT | Continuity of Care Document ---
:1950 Author Organization [facility] t Address [address] [place] [address] [address]. [address]. [address] [place] [address] Care Team Providers Name Role Phone Adeola Roth Primary Care Physician Rosemary [facility] Main Attending Clinician Unavailable Katarina MORROW Attending Clinician KATARINA Attending Clinician Unavailable Doctor Unassigned, Name Attending Clinician Unavailable Payers Payer Name Policy Type Policy Number Effective Date Expiration Date S ource Problems This patient has no known problems. Allergies, Adverse Reactions, Alerts Allergy Allergy Status Severity Reaction(s) Onset Inactive Treating Comm ents Source Name Type Date Date Clinician NO KNOWN Drug [facility] Social History Social Habit Start Date Stop Date Quantity Comments Source Sex Assigned At [birth year] [facility] 00:00:00 00:00:00 [facility] Smoking Status Start Date Stop Date Source Unknown if ever smoked [facility] Medications This patient has no known medications. Procedures Procedure Date / Time Performed Performing Clinician [facility] e ASSIGNMENT OF BENEFITS 2021-08-15 18:31:09 Doctor Unassigned, No [facility] Branch Encounters Start End Encounter Admission Attending Care Care Encounter Source Date/Time Date/Time Type Type Clinicians Facility Department ID 2021-08-15 2021-08-15 Life Enrichment Specialist Rosemary [facility]st [facility] Main [facility] 1.2.8 [id number] Univers 13:34:36 13:49:36 Visit Jamel Bray [id number] [place] [id number] Eden rojas Professio [phone] [place] dical nal 353 Branch [facility] 2021-08-15 2021-08-15 [facility] [id number] Univers 13:30:00 13:30:00 JAMEL [id number] [facility] 2021-08-15 2021-08-15 [facility] [id number] Univers 13:30:00 13:30:00 JAMEL [facility] 2021-08-15 2021-08-15 Orders Doctor CHASIDY [id number] Univers 00:00:00 00:00:00 Only Unassigned, JONATHAN [id number] ity of [place] [facility] [id number] [place] [phone] [place] [id number] Branch Results This patient has no known results.
== END 2021-09-26 18:40 | DRG 690 ==
LOC: ER 00:51 → ERHOLD 03:55 → 2ND 12:02 → OBSVTOIN 09-25 08:27
PROVIDERS: ADMIT Hospitalist; ATTEND Hospitalist
DX: N39.0 Urinary tract infection, site not specified (principal); R78.81 Bacteremia; Z68.42 Body mass index [BMI] 45.0-49.9, adult; E46 Unspecified protein-calorie malnutrition; G89.29 Other chronic pain; I10 Essential (primary) hypertension; I48.0 Paroxysmal atrial fibrillation; G62.9 Polyneuropathy, unspecified; E66.9 Obesity, unspecified; L30.4 Erythema intertrigo; E86.0 Dehydration; B95.8 Unspecified staphylococcus as the cause of diseases classified elsewhere; B96.20 Unspecified Escherichia coli [E. coli] as the cause of diseases classified elsewhere; B37.2 Candidiasis of skin and nail; Z79.01 Long term (current) use of anticoagulants; Z79.82 Long term (current) use of aspirin; Z79.02 Long term (current) use of antithrombotics/antiplatelets; Z79.899 Other long term (current) drug therapy; Z20.822 Contact with and (suspected) exposure to COVID-19
CPT/HCPCS: 36415; 71045; 80048; 80053; 81003; 81015; 83605; 83735; 83880; 84145; 84439; 84443; 84484; 85025; 87040; 87077; 87086; 87088; 87186; 87205; 93005; 96365; 96366; 97110; 97116; 97161; 97530; 99284; G0378; J0696; J3370; J3480; J7040; U0003

== ENCOUNTER 2021-09-26 13:41 | Inpatient (IN) | payer OTHER ==
--- NOTE | 2021-09-26 15:03 | R.PREADM ---
PRE-ADMISSION SCREENING FORM SCREENING DATE AND TIME 09/26/2021 08:28 (CURRICULUM COORDINATOR) ANTICIPATED REHAB ADMISSION DATE 09/28/2021 REFERRING FACILITY [facility] REFERRAL DATE AND TIME 09/26/2021 08:28 (CURRICULUM COORDINATOR) REFERRAL ROOM# 202 ACUTE ADMIT DATE 09/24/2021 Previous Rehabilitation(s): No. 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 Erendira Huston REHAB FACILITY [facility] CLINICAL LIAISON Tiffanie Perkins PHYSICIAN REVIEWER Dr. Ha Hung M.D. MR# [id number] NAME PAYTON BARRERA ADDRESS [address] [place] [address] PHONE [facility] [id number] DATE OF 1950 AGE 71 SSN# [id number] GENDER female MARITAL STATUS RACE white ADMIT FROM 02 - [facility] PRE-HOSPITAL LIVING SETTING 01 - Home (private home/apt. board/care, assisted living, longterm, transitional living) HOME TYPE AND DETAILS Type of home: single family house # of steps to enter the residence: 0 # of steps within the residence: 0 # of levels in the residence: 1 PRE-HOSPITAL LIVING WITH Family/Relatives FAMILY SUPPORT Yes FAMILY SUPPORT DETAILS Per PT report, pt is living with her granddaughter. PRIMARY FAMILY CONTACT NAME Aure Lazo PRIMARY FAMILY CONTACT PHONE PRIMARY FAMILY CONTACT RELATIONSHIP Daughter PHONE PRIMARY FAMILY CONTACT ON ADM.? no IS PRIMARY FAMILY CONTACT AUTH. REP.? no 1ST EMERGENCY CONTACT Aure Lazo 1ST CONTACT PHONE 1ST CONTACT RELATIONSHIP Daughter PHONE 1ST CONTACT ON ADM. no IS 1ST CONTACT AUTH. REP.? no PHONE 2ND CONTACT ON ADM.? no PATIENT EMPLOYMENT STATUS Retired (for age) PATIENT EMPLOYER No Employer PAYOR INFORMATION: 1ST PAYOR NAME Medicare 1ST PAYOR PHONE [phone] 1ST PAYOR INJURY/ILLNESS DUE TO ACCIDENT? No ANOTHER DEMOCRAT RESPONSIBLE? No PRIMARY REHAB/ACUTE DIAGNOSIS: UTI and weakness ONSET DATE 09/24/2021 REHAB IMPAIRMENT CATEGORY (PAMELA): 20 Miscellaneous (Misc) does NOT meet 60% rule PRIMARY DIAGNOSIS-RELATED SURGERIES: No surgeries related to the primary diagnosis were performed. INTERVENTIONS: - Medication Management urine analysis greater than 50 bacteria nitrite +1+ leukoesterase BNP 499 GFR 89 CO2 36 BUN 22 UTI Escherichia coli gram neg farzana Staph Epidermis - Safety Educate on fall prevention strategies Educate patient on memory recall strategies to increase carryover RISK FOR COMPLICATIONS: - UTI Monitor for frequency, burning, discomfort, or incontinence - Skin Breakdown Nursing will assess skin daily using assessment tool and will place on Skin Breakdown Precautions as Indicated per protocol - Pain Clinical staff will assess patient's pain level every shift per protocol to monitor for pain manageme nt effectiveness Educate patient on pain management strategies Medications will be given and the pain level reassessed. Clinical Staff may employ other methods such as: massage, distraction, decrease stimulus, etc. as needed - Falls Educated pt on fall prevention strategies to reduce/eliminate fall risk Patient will be evaluated for Fall Precautions and will be placed on Fall Precautions as indicated pe r protocol. - Impaired Safety Educate patient on safety awareness strategies. Educate patient on safety hazards - Sespsis Monitor lab values - Bleeding Monitor lab values - Limb Ischemia Assess circulation each shift SUMMARY OF ACUTE HOSPITALIZATION: Pt. is a 71 yo Right-handed white female. On 09/24/2021 she was admitted to [facility] with diagnosis UTI and weakness. Her impairment category is Medically Complex Conditions 17 - Other Medically Complex Conditions (17. 9). Pre-morbidly, Pt. was independent/mod-I in Locomotion, Safety Awareness, Social Cognition, Balance, T ransfers Control, Sphincter Control, Self-Care, Communication, and Endurance; and she had good Locomo tion, Safety Awareness, Social Cognition, Balance, Transfers Control, Self-Care, Sphincter Control, C ommunication, and Endurance. Currently, she has deficits of Locomotion, Safety Awareness, Balance, Transfers Control, Self-Care, a nd Endurance. Pt. is now referred to [facility] for acute in-patient rehabilitation in order to maximize patient's functional independence in activities of daily living, strength, ROM, and mobi lity. patient has realistic goal of being discharged at assistance level partial assist - independent to r eside at Home with Family/Relatives.pa Ms. Drake Irene is a 71 yo female that lives with her granddaughter. Ms. Drake repor ts independence prior to hospitalization at wheelchair and limitations while using rollator. Ms. Drake reported to the ED via EMS with complaints of chills/tremors. Ms. Drake reports symptoms began 2020 (same day). Ms. Drake also reported she had urinary symptoms approximate 1 week from 09/24/2021 a nd symptoms had resolved. Ms. Drake was evaluated in the ED and labs were significant for CO2 36, BUN 22, GFR 89, BNP 499, urine analysis with greater than 50 bacteria nitrite, +1+ leukoesterase. Ms. Sierra schultz had a PMH of: A fib on chronic anticoagulation, HTN, and chronic pain. Ms. Drake reports increased w eakness and pain to pelvic area and back. Ms. Drake expressed desire to participate in acute inpatient rehab program to maximize strength, resolve medically complex conditions, increase safety with funct ional ambulation/mobility, and decrease caregiver burden. Without acute inpatient rehab approach Ms. Drake's fall risks increases, UB/LB strength decreases, caretaker grounds burden increases, urine bacteria ma y worsen, and transfer remain unsafe. Ms. Drake is currently working with PT. Per PT initial evaluatio n: currently gait not attempted due to LE's fatigues easily, starts having myoclonic tremors and tend s to buckle if pt. did not sit down. Pt. did perform side steps w/ walker toward head of bed 3-4 steps then had to sit down to prevent knee buckling. Pt also demonstrates poor standing balance a ffected by easy fatigability, LE's gets tremulous, myoclonic tremors w/ tendency to buckle if pt. did not sit down. Pt. would benefit from continued PT services prior to going home to improve pts. overa ll functional safety when performing out-of-bed transfers, wheelchair transfers and short segment amb ulation. Pt. would benefit from In-Pt. Rehab to continue PT and OT services prior to returning home. With an interdisciplinary approach by acute IRF, pt. demonstrates great potential and motivation to get stronger, safer, and more independent to return to [facility]. Pt demonstrates a strong need for an intensive team: rehab doctor, nurse, manager social media, and therapist to meet functional and medical goals. It is reasonable and necessary for the patient to come to acute IRF to safely dc. Pt is medically stable but in need of 24 hour nursing, doctor supervision, and oversight while receiving active and ongoing intensive (OT/PT/ST). The patient is reasonably expected to participate in 3 hours of therapy a day/15 hours a week. COVID-19 screening performed. Patient denies a new onset of fever, cough, difficulty breathing, sore throat, body aches and non-allergy nasal congestion in the past 24 hours. Patient denies travel outside of [place] in the past 14 days. Patient denies any contact with someone who has a confirmed diagnosis of or is under investigation for COVID-19 in the past 14 days. Patient has been tested negative for COVID- 19. PAST MEDICAL HISTORY Atrial Fibrilation Chronic Anticoagulation HTN Chronic pain PAST SURGICAL HISTORY: Back surgery -- dates not provided on pt's chart Hip surgery -- dates not provided on pt's chart MEDICATION ALLERGIES: No Known Drug Allergies (NKDA) ENVIRONMENTAL ALLERGIES: None Known - Substance Allergies None Known - Other Allergies None Known CODE STATUS: Full code WEIGHT/HEIGHT/BMI: WEIGHT 237 lbs HEIGHT 5' 0" BMI 46.3 DIET: - Diet Type Regular - Diet - Solid Texture Regular - Diet - Liquid Texture Regular - Tube Feed N/A SKIN DIAGRAM: Sharp pelvic area pain; level - 3/10 Sharp Back pain; level - 3/10 pain documented by nursing 09/26/2021 REVIEW OF SYSTEMS: - Gen Alert and awake Lying in bed No apparent distress Oriented to: person, time, and place - Vital Signs Temperature: 97.5 F SBP/DBP: 113/63 Pulse: 79 Resp: 15 Vital signs stable, afebrile - CVS RRR VITAL SIGNS Temperature: 97.5 F forehead SBP/DBP: 113/63 Pulse: 79 Resp: 15 Vital signs stable, afebrile Vitals recorded by nursing 09/26/2021 at 7:56 am. MEDICATIONS/TREATMENT: Other- See attached MAR (Medication Administration Record). CURRENT SPHINCTER CONTROL: Pre-hospital bladder status: unspecified # of bladder accidents in the last 7 days prior to screenin Pre-hospital bowel status: unspecified # of bowel accidents in the last 7 days prior to screenin Last Bowel Movement Date: 09/26/2021 CURRENT LOCOMOTION STATUS: distance walked 6 feet with RW and 2L O2 DETAILED CURRENT FUNCTIONAL STATUS: - Bladder accident frequency: 7-Ind - No accidents in the past 7 days - Bowel accident frequency: 7-Ind - No accidents in the past 7 days - Walking score based on distance walked: 0(N/A) score based on distance walked: 1(<=50ft) - Wheelchair score based on distance traveled: 0(N/A) QI SCORES: - Self-Care A. Eating 05-Setup or clean-up assistance B. Oral hygiene 02-Substantial/maximal assistance C. Toileting hygiene 02-Substantial/maximal assistance E. Shower/bathe self 88-Not attempted due to medical condition or safety concerns F. Upper body dressing 02-Substantial/maximal assistance G. Lower body dressing 02-Substantial/maximal assistance H. Putting on/taking off footwear 02-Substantial/maximal assistance - Mobility A. Roll left and right 02-Substantial/maximal assistance B. Sit to lying 06-Independent C. Lying to sitting on side of bed 06-Independent D. Sit to stand 06-Independent E. Chair/gbw-nf-ccprn transfer 04-Supervision or touching assistance F. Toilet transfer 88-Not attempted due to medical condition or safety concerns G. Car transfer 88-Not attempted due to medical condition or safety concerns I. Walk 10 feet 88-Not attempted due to medical condition or safety concerns J. Walk 50 feet with two turns 88-Not attempted due to medical condition or safety concerns K. Walk 150 feet 88-Not attempted due to medical condition or safety concerns L. Walking 10 feet on uneven surfaces 88-Not attempted due to medical condition or safety concerns M. 1 step (curb) 88-Not attempted due to medical condition or safety concerns N. 4 steps 88-Not attempted due to medical condition or safety concerns O. 12 steps 88-Not attempted due to medical condition or safety concerns P. Picking up object 88-Not attempted due to medical condition or safety concerns R. Wheel 50 feet with two turns 88-Not attempted due to medical condition or safety concerns S. Wheel 150 feet 88-Not attempted due to medical condition or safety concerns - Bladder and Bowel Bladder continence Bowel continence - Endurance Poor - Balance Poor - Safety Awareness Poor CURRENT FUNC. DEFICITS: Self-Care, Mobility, Endurance, Balance, and Safety Awareness CURRENT / PREVIOUS ASSISTIVE DEVICES: Oxygen Wheelchair rollator HISTORY OF FALLS. HAS THE PATIENT HAD TWO OR MORE FALLS IN THE PAST YEAR OR ANY FALL WITH INJURY IN T HE PAST YEAR?: Unknown PRIOR SURGERY. DID THE PATIENT HAVE MAJOR SURGERY DURING THE 100 DAYS PRIOR TO ADMISSION?: Unknown THERAPY NOTES FROM ACUTE CARE: Attached. SPECIAL NEEDS: - Safety Concerns Skin breakdown precautions needed due to skin breakdown risk - Oxygen connection to oxygen when in room-- portable tank when in shower PRECAUTIONS: - Skin Breakdown Risk skin assessments - O2 saturations monitor O2 levels - Fall Precaution Bed alarm fall bracelet - LE weakness Education with functional mobility - Tremors Monitor tremors while performing functional tasks PATIENT NEEDS ACTIVE AND ONGOING THERAPEUTIC INTERVENTION OF MULTIPLE THERAPY DISCIPLINES, INCLUDING: - Dietary and Nutrition Adequate Nutrition. Nutritional Education. Nutritional Supplements. - Occupational Therapy Cognitive Retraining. Visual Perceptual Training. ADL Training. Adaptive Equipment. Community Reinteg ration. Household Tasks. Indep. ADL's- Higher Level Functioning. Patient/Family Education. Safety Karen reness. Transfer Training. UE ROM. UE Strengthening. - Speech Therapy Cognitive Training. Expressive Language Skills. Memory Strategies. Receptive Language Skills. Speech Intelligibility Training. - Physical Therapy Balance Training. Evaluate and Treat. Gait Training. LE ROM. LE Strengthening. Medical Equipment Asse ssment and Evaluation. Mobility Training. Patient/Family Education. Safety Awareness. Transfer Traini ng. Wheelchair Management. PATIENT NEEDS CLOSE MEDICAL SUPERVISION BY A REHABILITATION PHYSICIAN FOR: Coordination of Treatment Team Wound Care Bowel and Bladder Management Medical and Co-Morbidity Management Pain Management medication management PATIENT REQUIRES 24X7 REHAB NURSING FOR MEDICAL AND FUNCTIONAL MGT. OF THE FOLLOWING DEFICITS: Disease Management Medication Management Patient/Family Education Providing Safe Environment Skin Integrity Ambulation Bowel and Bladder Management Pain Management Respiratory/Airway Management Transfers PATIENT REQUIRES INTENSIVE, COORDINATED INTERDISCIPLINARY APPROACH TO REHAB: Arranging Home Equipment/Services Discharge Planning Family Intervention/Training Tar Kettle Runner/Case Management PATIENT REHAB POTENTIAL: Aubrey BARRERA is able and expected to receive 3 hours of individualized therapy daily on at least 5 of every 7 days Aubrey BARRERA's prognosis for significant practical improvement within a reasonable period of time appears Good Expected level of measurable improvement will be of a practical value to Aubrey BARRERA's functiona l capacity or adaptations to impairments Has a viable Discharge Plan Medically appropriate; condition is sufficiently stable to participate in intensive rehab program DISCHARGE PLAN: - Estimated Length of Stay (days) 13. - Consensus on plan Discharge plan has been discussed with primary caregiver. Patient/Family is in agreement with the americo n. Primary caregiver is in agreement with the plan. - Patient/Family Goals Return home independently. - Planned Living Setting Upon Discharge Home, to live with Family/Relatives. Transitional Living. RECOMMENDED CARE LEVEL: IRF RECOMMENDATION DETAILS: Recommended Admission to Comprehensive Rehabilitation Program to Increase Functional [place] SCREENER'S COMPLETENESS CONFIRMATION: - Screening Confirmation The patient data collection on this preadmission screening form is finished PHYSICIANS REVIEW AND ADMISSION DETERMINATION Admit - Based on my review of the Pre-Admission Screening results, in my medical judgment and experie nce, I concur with the findings and recommend admission to [facility], as this patient requires an IRF level of care. SIGNATURE PANEL: Clinical Liaison - [electronically] signed by JONNIE Alexander on 09/26/2021 at 11:54 (CURRICULUM COORDINATOR) Physician Reviewer - [electronically] signed by Dr. Ha Hung M.D. on 09/26/2021 at 15:02 (CURRICULUM COORDINATOR )
[2021-09-26 19:57] VITALS: BMI 43.9
[2021-09-26] MEDS: APIXABAN 5 MG TABLET PO SCH (20:00)
[2021-09-26] MEDS: DULERA 100/5 (MOMETASONE/FORMOTEROL) INHALER IH SCH (20:00)
[2021-09-26] MEDS: FLUOXETINE 20 MG CAP PO SCH ×2 (20:00→21:05)
[2021-09-26] MEDS ORDERED: cloNIDine HCL 0.1 MG TAB PO PRN (20:03)
[2021-09-26] MEDS: Oxycodone HCl/Acetaminophen 1 TAB TAB PO SCH (21:00)
[2021-09-26] MEDS: ALPRAZOLAM 0.5 MG TABLET PO PRN (21:05)
[2021-09-26] MEDS: AMOX/K CLAV 875 MG TAB PO SCH (21:05)
[2021-09-26] MEDS: METOPROLOL TAR 50 MG TAB PO SCH (21:05)
[2021-09-27 00:45] LABS: Urine Appearance CLEAR (Clear); Urine Bilirubin NEGATIVE (Negative); Urine Blood NEGATIVE (Negative); Urine Color YELLOW (Yellow); Urine Glucose NEGATIVE (Negative); Urine Protein NEGATIVE (Negative); Urine Urobilinogen 0.2 mg/dL (0.2-1.0); Urine pH 5.5 (5.0-7.0)
[2021-09-27 00:58] LABS: Urine Bacteria <20 /HPF (<20); Urine Mucus 1+ /HPF (NONE SEEN); Urine RBC <5 /HPF (NONE SEEN)
[2021-09-27 06:14] LABS: Absolute Lymphocytes (CBC) 1.6 K/uL (0.7-4.9); Basophils % 0.7 % (0-1.3); Hematocrit 40.4 % (36.0-45.0); Lymphocytes % 26.8 % (15.3-44.8); MPV 8.4 fL (7.6-11.3)
[2021-09-27 06:35] LABS: Albumin 2.9 g/dL (3.4-5.0); Magnesium 2.3 mg/dL (1.8-2.4); Prealbumin 16.5 mg/dL (20-40)
[2021-09-27] MEDS: hydroCHLOROthiazide 25 MG TAB PO SCH (07:43)
[2021-09-27] MEDS: AMOX/K CLAV 875 MG TAB PO SCH ×2 (07:44→20:24)
[2021-09-27] MEDS: VALSARTAN 160 MG TAB PO SCH ×3 (07:44→20:25)
[2021-09-27] MEDS: FLUOXETINE 20 MG CAP PO SCH (07:44)
[2021-09-27] MEDS: METOPROLOL TAR 50 MG TAB PO SCH ×2 (07:45→20:25)
[2021-09-27] MEDS: APIXABAN 5 MG TABLET PO SCH ×2 (07:48→20:25)
[2021-09-27] MEDS: CYCLOBENZAPRINE 10 MG TAB PO SCH (07:49)
[2021-09-27] MEDS: DULERA 100/5 (MOMETASONE/FORMOTEROL) INHALER IH SCH ×3 (08:00→19:13)
[2021-09-27] MEDS ORDERED: hydroCHLOROthiazide 25 MG TAB PO SCH (08:00)
[2021-09-27] MEDS: TIOTROPIUM 5 SPRAYS/INHALER IH SCH ×2 (08:02→19:14)
[2021-09-27] MEDS: Oxycodone HCl/Acetaminophen 1 TAB TAB PO SCH ×3 (08:05→20:26)
--- NOTE | 2021-09-27 10:06 | P.RH.PN ---
Estimated Length of Stay: 14 Expected Discharge Date: 10/09/21 Discharge Disposition Plan: Home Family Support: Yes Retirement Goal: Mobility, Transfers, Self Care Vital Signs: Last Vital Signs Temp 97.2 F 09/27/21 07:15 Pulse 73 09/27/21 07:45 Resp 18 09/27/21 08:05 BP 127/67 09/27/21 07:45 Pulse Ox 96 09/27/21 08:05 Laboratory: Laboratory Last Values WBC 5.90 K/uL (4.3-10.9) 09/27/21 05:58 RBC 4.60 M/uL (3.86-4.86) 09/27/21 05:58 Hgb 13.2 g/dL (12.0-15.0) 09/27/21 05:58 Hct 40.4 % (36.0-45.0) 09/27/21 05:58 MCV 87.8 fL (80-100) 09/27/21 05:58 MCH 28.7 pg (27.0-35.0) 09/27/21 05:58 MCHC 32.6 g/dL (32.0-36.0) 09/27/21 05:58 RDW 13.6 % (12.1-15.2) 09/27/21 05:58 Plt Count 156 K/uL (152-406) 09/27/21 05:58 MPV 8.4 fL (7.6-11.3) 09/27/21 05:58 Neutrophils % 57.8 % (41.7-73.7) 09/27/21 05:58 Lymphocytes % 26.8 % (15.3-44.8) 09/27/21 05:58 Monocytes % 12.8 % (3.3-12.3) H 09/27/21 05:58 Eosinophils % 1.9 % (0-4.4) 09/27/21 05:58 Basophils % 0.7 % (0-1.3) 09/27/21 05:58 Absolute Neutrophils 3.4 K/uL (1.8-8.0) 09/27/21 05:58 Absolute Lymphocytes 1.6 K/uL (0.7-4.9) 09/27/21 05:58 Absolute Monocytes 0.7 K/uL (0.1-1.3) 09/27/21 05:58 Absolute Eosinophils 0.1 K/uL (0-0.5) 09/27/21 05:58 Absolute Basophils 0.0 K/uL (0-0.5) 09/27/21 05:58 Sodium 144 mmol/L (136-145) 09/27/21 05:58 Potassium 4.0 mmol/L (3.5-5.1) 09/27/21 05:58 Chloride 107 mmol/L (98-107) 09/27/21 05:58 Carbon Dioxide 34 mmol/L (21-32) H 09/27/21 05:58 BUN 9 mg/dL (7-18) 09/27/21 05:58 Creatinine 0.65 mg/dL (0.55-1.3) 09/27/21 05:58 Estimated GFR 89 mL/min (=/>90) L 09/27/21 05:58 Glucose 99 mg/dL (74-106) 09/27/21 05:58 Calcium 8.7 mg/dL (8.5-10.1) 09/27/21 05:58 Magnesium 2.3 mg/dL (1.8-2.4) 09/27/21 05:58 Albumin 2.9 g/dL (3.4-5.0) L 09/27/21 05:58 Prealbumin 16.5 mg/dL (20-40) L 09/27/21 05:58 Urine Color Yellow (Yellow) 09/27/21 00:10 Urine Appearance Clear (Clear) 09/27/21 00:10 Urine pH 5.5 (5.0-7.0) 09/27/21 00:10 Ur Specific [place] 1.010 (1.005-1.030) 09/27/21 00:10 Glucose (UA)(Auto) Negative (Negative) 09/27/21 00:10 Urine Ketones Negative (Negative) 09/27/21 00:10 Urine Blood Negative (Negative) 09/27/21 00:10 Urine Nitrite Negative (Negative) 09/27/21 00:10 Urine Bilirubin Negative (Negative) 09/27/21 00:10 Urine Urobilinogen 0.2 mg/dL (0.2-1.0) 09/27/21 00:10 Ur Leukocyte Esterase Negative (Negative) 09/27/21 00:10 Urine RBC <5 /HPF (NONE SEEN) 09/27/21 00:10 Urine WBC <5 /HPF (<5) 09/27/21 00:10 Ur Squamous Epith Cells 10-20 /HPF (NONE SEEN) H 09/27/21 00:10 Urine Bacteria <20 /HPF (<20) 09/27/21 00:10 Urine Mucus 1+ /HPF (NONE SEEN) 09/27/21 00:10 Urine Culture Reflexed Not needed 09/27/21 00:10 Urine Total Protein Negative (Negative) 09/27/21 00:10 Weight: 240 lb Physician Update: She is making fair overall progress with therapy. Labs were reviewed and are stable. Walking 20' with minimum assistance, self propelled wheelchair 200' with contact guard assistance. Comment: No skin breakdown reported. Dry heels noted. 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 Please see the Rehabilitation Signature page for all necessary signatures.
[2021-09-27] MEDS: NYSTATIN PWDR 100000 UNIT/GM TOP PRN (11:50)
[2021-09-27] MEDS ORDERED: FEXOFENADINE 180 MG TAB PO PRN (13:49)
[2021-09-27] MEDS ORDERED: GUAIFENESIN/DM 5 ML UCUP PO PRN (13:50)
--- NOTE | 2021-09-27 14:36 | R.HP ---
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 board/care, assisted living, fpc, transitional living) PRE-HOSPITAL LIVING WITH Family/Relatives ENCOUNTER PHYSICIAN: Dr. Ha Hung M.D. REFERRING DOCTOR: Dr. 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 HISTORY OF PRESENT ILLNESS (HPI): Pt. is a 71 yo Right-handed white female. On 09/24/2021 she was admitted to [facility] with diagnosis UTI and weakness. Her impairment category is Medically Complex Conditions 17 - Other Medically Complex Conditions (17. 9). Pre-morbidly, Pt. was independent/mod-I in Locomotion, Safety Awareness, Social Cognition, Balance, T ransfers Control, Sphincter Control, Self-Care, Communication, and Endurance; and she had good Locomo tion, Safety Awareness, Social Cognition, Balance, Transfers Control, Self-Care, Sphincter Control, C ommunication, and Endurance. Currently, she has deficits of Locomotion, Safety Awareness, Balance, Transfers Control, Self-Care, a nd Endurance. Pt. is now referred to [facility] for acute in-patient rehabilitation in order to maximize patient's functional independence in activities of daily living, strength, ROM, and mobi lity. patient has realistic goal of being discharged at assistance level partial assist - independent to r eside at Home with Family/Relatives.pa Ms. Payton Bonilla is a 71 yo female that lives with her granddaughter. Ms. Drake repor ts independence prior to hospitalization at wheelchair and limitations while using rollator. Ms. Drake reported to the ED via EMS with complaints of chills/tremors. Ms. Drake reports symptoms began 2020 (same day). Ms. Drake also reported she had urinary symptoms approximate 1 week from 09/24/2021 a nd symptoms had resolved. Ms. Drake was evaluated in the ED and labs were significant for CO2 36, BUN 22, GFR 89, BNP 499, urine analysis with greater than 50 bacteria nitrite, +1+ leukoesterase. Ms. Sierra schultz had a PMH of: A fib on chronic anticoagulation, HTN, and chronic pain. Ms. Drake reports increased w eakness and pain to pelvic area and back. Ms. Drake expressed desire to participate in acute inpatient rehab program to maximize strength, resolve medically complex conditions, increase safety with funct ional ambulation/mobility, and decrease caregiver burden. Without acute inpatient rehab approach Ms. Drake's fall risks increases, UB/LB strength decreases, managed care nurse burden increases, urine bacteria ma y worsen, and transfer remain unsafe. Ms. Drake is currently working with PT. Per PT initial evaluatio n: currently gait not attempted due to LE's fatigues easily, starts having myoclonic tremors and tend s to buckle if pt. did not sit down. Pt. did perform side steps w/ walker toward head of bed 3-4 steps then had to sit down to prevent knee buckling. Pt also demonstrates poor standing balance a ffected by easy fatigability, LE's gets tremulous, myoclonic tremors w/ tendency to buckle if pt. did not sit down. Pt. would benefit from continued PT services prior to going home to improve pts. overa ll functional safety when performing out-of-bed transfers, wheelchair transfers and short segment amb ulation. Pt. would benefit from In-Pt. Rehab to continue PT and OT services prior to returning home. With an interdisciplinary approach by acute IRF, pt. demonstrates great potential and motivation to get stronger, safer, and more independent to return to [facility]. Pt demonstrates a strong need for an intensive team: rehab doctor, nurse, director social service, and therapist to meet functional and medical goals. It is reasonable and necessary for the patient to come to acute IRF to safely dc. Pt is medically stable but in need of 24 hour nursing, doctor supervision, and oversight while receiving active and ongoing intensive (OT/PT/ST). The patient is reasonably expected to participate in 3 hours of therapy a day/15 hours a week. COVID-19 screening performed. Patient denies a new onset of fever, cough, difficulty breathing, sore throat, body aches and non-allergy nasal congestion in the past 24 hours. Patient denies travel outside of [place] in the past 14 days. Patient denies any contact with someone who has a confirmed diagnosis of or is under investigation for COVID-19 in the past 14 days. Patient has been tested negative for COVID- 19. MEDICATION ALLERGIES: No Known Drug Allergies (NKDA) ENVIRONMENTAL ALLERGIES: None Known - Substance Allergies None Known - Other Allergies None Known PAST MEDICAL HISTORY: Atrial Fibrilation Chronic Anticoagulation HTN Chronic pain PAST SURGICAL HISTORY: Back surgery -- dates not provided on pt's chart Hip surgery -- dates not provided on pt's chart SOCIAL HISTORY: - Home Living Family/Relatives REVIEW OF SYSTEMS: - Gen No Chills Fatigue No Fever - Eyes No Double Vision No itchiness - ENMT No Difficulty Swallowing - CVS No Chest Discomfort No Chest Pain Fatigue No Weight Gain - Resp Cough No Shortness of Breath - GI Continent No Abdominal Pain No Constipation No Diarrhea - Continent No Kidney Pain No Painful Urination No Urinary Urgency - MSK No Joint Pain Muscle Cramps Stiffness - Skin No Itching No Rash No Suspicious Lesions - Neuro Coordination Difficulty No Difficulty with Concentration No Memory Loss No Seizures Weakness - Psych No Anxiety No Depression No HIV Exposure No Persistent Infections No Seasonal Allergies - Endo No Cold/Heat Intolerance No Excessive Hunger No Excessive Thirst No Excessive Urination PHYSICAL EXAM - Gen Alert and awake Lying in bed No apparent distress Oriented to: person, time, and place - Skin No breakdown No abnormalities - Eyes No abnormalities - ENMT No abnormalities - Neck No abnormalities - CVS RRR - Chest No abnormalities - Abd Obese, soft, nontender - GI Non distended Deferred - No abnormalities - Ext Mild bilateral lower extremity edema. - MSK 4/5 weakness in both lower extremities. - Neuro No focal deficits - Psych No abnormalities VITAL SIGNS Temperature: 97.2 F SBP/DBP: 127/67 Pulse: 73 Resp: 16 NURSING: - Shower allowing shower PRECAUTIONS: - Skin Breakdown Risk skin assessments - O2 saturations monitor O2 levels - Fall Precaution Bed alarm fall bracelet - LE weakness Education with functional mobility - Tremors Monitor tremors while performing functional tasks ACTIVITIES OOB only with supervision QI SCORES: - Self-Care A. Eating 05-Setup or clean-up assistance B. Oral hygiene 02-Substantial/maximal assistance C. Toileting hygiene 02-Substantial/maximal assistance E. Shower/bathe self 88-Not attempted due to medical condition or safety concerns F. Upper body dressing 02-Substantial/maximal assistance G. Lower body dressing 02-Substantial/maximal assistance H. Putting on/taking off footwear 02-Substantial/maximal assistance - Mobility A. Roll left and right 02-Substantial/maximal assistance B. Sit to lying 06-Independent C. Lying to sitting on side of bed 06-Independent D. Sit to stand 06-Independent E. Chair/xfg-if-[id number] transfer 04-Supervision or touching assistance F. Toilet transfer 88-Not attempted due to medical condition or safety concerns G. Car transfer 88-Not attempted due to medical condition or safety concerns I. Walk 10 feet 88-Not attempted due to medical condition or safety concerns J. Walk 50 feet with two turns 88-Not attempted due to medical condition or safety concerns K. Walk 150 feet 88-Not attempted due to medical condition or safety concerns L. Walking 10 feet on uneven surfaces 88-Not attempted due to medical condition or safety concerns M. 1 step (curb) 88-Not attempted due to medical condition or safety concerns N. 4 steps 88-Not attempted due to medical condition or safety concerns O. 12 steps 88-Not attempted due to medical condition or safety concerns P. Picking up object 88-Not attempted due to medical condition or safety concerns R. Wheel 50 feet with two turns 88-Not attempted due to medical condition or safety concerns S. Wheel 150 feet 88-Not attempted due to medical condition or safety concerns - Bladder and Bowel Bladder continence Bowel continence - Endurance Poor - Balance Poor - Safety Awareness Poor CURRENT FUNC. DEFICITS: Self-Care, Mobility, Endurance, Balance, and Safety Awareness MEDICATIONS: - Other See attached MAR (Medication Administration Record) ASSESSMENT: Pt. is a 71 yo Right-handed white female.On 09/24/2021 she was admitted to [facility] with diagnosis UTI and weakness.Her impairment category is Medically Complex Conditions 17 - Other Medically Complex Conditions (17.9).Pre-morbidly, Pt. was independent/mod-I in Locomotion, Saf ety Awareness, Social Cognition, Balance, Transfers Control, Sphincter Control, Self-Care, Communicat ion, and Endurance; and she had good Locomotion, Safety Awareness, Social Cognition, Balance, Transfe rs Control, Self-Care, Sphincter Control, Communication, and Endurance.Currently, she has deficits of Locomotion, Safety Awareness, Balance, Transfers Control, Self-Care, and Endurance.Pt. is now referr ed to [facility] for acute in-patient rehabilitation in order to maximize vickie ent's functional independence in activities of daily living, strength, ROM, and mobility.- Rehab Goal patient has realistic goal of being discharged at assistance level partial assist - independent to r eside at Home with Family/Relatives.pa Ms. Payton Bonilla is a 71 yo female that lives with her granddaughter. Ms. Drake repor ts independence prior to hospitalization at wheelchair and limitations while using rollator. Ms. Drake reported to the ED via EMS with complaints of chills/tremors. Ms. Drake reports symptoms began 2020 (same day). Ms. Drake also reported she had urinary symptoms approximate 1 week from 09/24/2021 a nd symptoms had resolved. Ms. Drake was evaluated in the ED and labs were significant for CO2 36, BUN 22, GFR 89, BNP 499, urine analysis with greater than 50 bacteria nitrite, +1+ leukoesterase. Ms. Sierra schultz had a PMH of: A fib on chronic anticoagulation, HTN, and chronic pain. Ms. Drake reports increased w eakness and pain to pelvic area and back. Ms. Drake expressed desire to participate in acute inpatient rehab program to maximize strength, resolve medically complex conditions, increase safety with funct ional ambulation/mobility, and decrease caregiver burden. Without acute inpatient rehab approach Ms. Drake's fall risks increases, UB/LB strength decreases, managed care nurse burden increases, urine bacteria ma y worsen, and transfer remain unsafe. Ms. Drake is currently working with PT. Per PT initial evaluatio n: currently gait not attempted due to LE's fatigues easily, starts having myoclonic tremors and tend s to buckle if pt. did not sit down. Pt. did perform side steps w/ walker toward head of bed 3-4 steps then had to sit down to prevent knee buckling. Pt also demonstrates poor standing balance a ffected by easy fatigability, LE's gets tremulous, myoclonic tremors w/ tendency to buckle if pt. did not sit down. Pt. would benefit from continued PT services prior to going home to improve pts. overa ll functional safety when performing out-of-bed transfers, wheelchair transfers and short segment amb ulation. Pt. would benefit from In-Pt. Rehab to continue PT and OT services prior to returning home. With an interdisciplinary approach by acute IRF, pt. demonstrates great potential and motivation to get stronger, safer, and more independent to return to [facility]. Pt demonstrates a strong need for an intensive team: rehab doctor, nurse, director social service, and therapist to meet functional and medical goals. It is reasonable and necessary for the patient to come to acute IRF to safely dc. Pt is medically stable but in need of 24 hour nursing, doctor supervision, and oversight while receiving active and ongoing intensive (OT/PT/ST). The patient is reasonably expected to participate in 3 hours of therapy a day/15 hours a week. COVID-19 screening performed. Patient denies a new onset of fever, cough, difficulty breathing, sore throat, body aches and non-allergy nasal congestion in the past 24 hours. Patient denies travel outside of [place] in the past 14 days. Patient denies any contact with someone who has a confirmed diagnosis of or is under investigation for COVID-19 in the past 14 days. Patient has been tested negative for COVID- 19.REHAB PLAN: - Physical Therapy Gait dysfunction - to improve, our physical therapists will perform initial evaluation of pt's status upon admission and devise an individualized program for Gait Training, and Wheel Chair mobility Inability to transfer - to improve, our physical therapists will perform initial evaluation of pt's s tatus upon admission and devise an individualized program for Bed mobility Need for home safety evaluation - to improve, our physical therapists will perform initial evaluation of pt's status upon admission and devise an individualized program for Home Evaluation Need in caregiver upon discharge - to improve, our physical therapists will perform initial evaluatio n of pt's status upon admission and devise an individualized program for Caregiver Training New precaution - to improve, our physical therapists will perform initial evaluation of pt's status u gamaliel admission and devise an individualized program for Patient precaution education Edema - to improve, our physical therapists will perform initial evaluation of pt's status upon admi ssion and devise an individualized program for Elevation Training, and Lymphedema Therapy Poor balance - to improve, our physical therapists will perform initial evaluation of pt's status upo n admission and devise an individualized program for Balance Training Poor endurance - to improve, our physical therapists will perform initial evaluation of pt's status u gamaliel admission and devise an individualized program for Endurance Training Weakness - to improve, our physical therapists will perform initial evaluation of pt's status upon ad mission and devise an individualized program for Aquatic Therapy, Neuromuscular Reeducation, and Stre ngthening Achieving independence - to improve, our physical therapists will perform initial evaluation of pt's status upon admission and devise an individualized program for Community Reintegration Activities - Occupational Therapy ADL deficits - to improve, our occupation therapists will perform initial evaluation of pt's status u gamaliel admission and devise an individualized program for Bathing, Bed mobility, Community Reintegration , Cooking, Dressing, Eating, Fine Motor Skills, Grooming, Homemaking, Kitchen Mobility, Laundry, Vickie ent Education, Safety Awareness, Splinting - Positioning, Transfers(Toilet, Tub, Shower), and Wheel C hair Management Need for managed care nurse - to improve, our occupation therapists will perform initial evaluation of pt's s tatus upon admission and devise an individualized program for Caregiver Training Weakness - to improve, our occupation therapists will perform initial evaluation of pt's status upon admission and devise an individualized program for Aquatic Therapy, Balance, Endurance, UE ROM, and U E strengthening MEDICAL PLAN: - Diet Type Start Regular - Diet - Liquid Texture Start Regular - Tube Feed Start N/A - Skin Breakdown Risk skin assessments - Fall Precaution Bed alarm fall bracelet - Other See attached MAR (Medication Administration Record) - Diet - Solid Texture Regular - Shower shower - O2 saturations monitor O2 levels - LE weakness Education with functional mobility - Tremors Monitor tremors while performing functional tasks DISCHARGE PLAN: - Estimated Length of Stay (days) 13. - Consensus on plan Discharge plan has been discussed with primary caregiver. Patient/Family is in agreement with the [place]. Primary caregiver is in agreement with the plan. - Patient/Family Goals Return home independently. - Planned Living Setting Upon Discharge Home, to live with Family/Relatives. Transitional Living. 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
--- NOTE | 2021-09-27 14:38 | PAPE ---
POST ADMISSION PHYSICIAN EVALUATION PATIENT: [facility] MR# [id number] REFERRING DOCTOR Dr. 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 Ha Hung M.D. ADMISSION DIAGNOSIS: UTI and weakness ONSET DATE 09/24/2021 POST-ADMISSION FUNCTIONAL/MEDICAL STATUS: - Bladder Same accident frequency: 7-Ind - No accidents in the past 7 days - Bowel Same accident frequency: 7-Ind - No accidents in the past 7 days - Walking Same score based on distance walked: 0(N/A) Same score based on distance walked: 1(<=50ft) - Wheelchair Same score based on distance traveled: 0(N/A) STATUS CHANGE EVALUATION: No change in Functional or Medical Status is identified compared with Pre-Admission screening. PATIENT NEEDS CLOSE MEDICAL SUPERVISION BY A REHABILITATION PHYSICIAN FOR: Coordination of Treatment Team Wound Care Bowel and Bladder Management Medical and Co-Morbidity Management Pain Management medication management PATIENT REQUIRES 24X7 REHAB NURSING FOR MEDICAL AND FUNCTIONAL MGT. OF THE FOLLOWING DEFICITS: Disease Management Medication Management Patient/Family Education Providing Safe Environment Skin Integrity Ambulation Bowel and Bladder Management Pain Management Respiratory/Airway Management Transfers PATIENT REQUIRES INTENSIVE, COORDINATED INTERDISCIPLINARY APPROACH TO REHAB: Arranging Home Equipment/Services Discharge Planning Family Intervention/Training Manager Harbor/Case Management LIST OF IDENTIFIED AND POTENTIAL PROBLEMS: Alteration in leisure activities Bladder, Incontinence Bowel, Incontinence Infection, Actual or Potential Mobility Impaired Pain, Alteration in Comfort Self Care Deficit Skin Integrity, Actual or Potential Urinary Tract Infection (UTI), Actual or Potential RISK FOR COMPLICATIONS - UTI Monitor for frequency, burning, discomfort, or incontinence. - Skin Breakdown Nursing will assess skin daily using assessment tool and will place on Skin Breakdown Precautions as Indicated per protocol. - Pain Clinical staff will assess patient's pain level every shift per protocol to monitor for pain manageme nt effectiveness. Educate patient on pain management strategies. Medications will be given and the pa in level reassessed. Clinical Staff may employ other methods such as: massage, distraction, decrease stimulus, etc. as needed. - Falls Educated pt on fall prevention strategies to reduce/eliminate fall risk. Patient will be evaluated fo r Fall Precautions and will be placed on Fall Precautions as indicated per protocol. - Impaired Safety Educate patient on safety awareness strategies. Educate patient on safety hazards. - Sespsis Monitor lab values. - Bleeding Monitor lab values. - Limb Ischemia Assess circulation each shift. INTERVENTIONS - Medication Management urine analysis greater than 50 bacteria nitrite. +1+ leukoesterase. BNP 499. GFR 89. CO2 36. BUN 22. UTI. Escherichia coli gram neg farzana. Staph Epidermis. - Safety Educate on fall prevention strategies. Educate patient on memory recall strategies to increase carryo tay. PATIENT COULD BE AT RISK FOR COMPLICATIONS FROM ADVERSE MEDICAL CONDITIONS DUE TO HIS/HER COMORBIDITI ES AND THE RIGORS OF THE INTENSIVE REHABILLITATION PROGRAM. METHODS OR INTERVENTIONS TO AVOID COMPLIC ATIONS INCLUDE: - Bleeding Assess lab values and manage abnormalities. Nursing to teach precautions for anti-coagulation therapy . Wound to be assessed every shift. - Infection Clinical staff to assess and manage the signs and symptoms of infection including fever, redness, war mth, etc. - Urinary Tract Infection - Falls Patient will be evaluated for Fall Precautions and will be placed on Fall Precautions as indicated pe r protocol. - Skin Breakdown Nursing will assess skin daily using assessment tool and will place on Skin Breakdown Precautions as indicated per protocol. - Pain Clinical staff may employ non-medication methods such as massage, distraction, decrease stimulus, etc . as needed. Clinical staff will assess patient's pain level every shift per protocol to assess and e nsure pain management effectiveness. Medications will be given and the pain level re-assessed. PRELIMINARY PLAN OF CARE: - Physical Therapy Patient needs Physical Therapy for a daily minimum of 1.5 hours at least 5 out of 7 days, to improve: Mobility, Strengthening, Transfers, Stretching, ROM, Endurance, Ability to manage stairs, Gait, and Balance. - Speech Therapy Patient needs Speech Therapy for a daily minimum of 0.5 hours at least 5 out of 7 days, to improve: S wallowing, Cognition, Language Skills, and Compensatory Strategies. - Rehabilitation Nursing Patient requires 24x7 Rehabilitation Nursing for: Pain Issues, Identifying and preventing risk factor s, Monitoring and reporting current medical conditions, Assisting with ambulation and transfer, Marine ting with all ADL-s, Teaching patients about disease process and medications, Family teaching, Provid ing safe environment, Bowel and Bladder Issues, Skin Integrity, and Medication Management. Patient needs Manager Harbor and/or Case Management for: Discharge Planning, Arranging Home Equipmen t or Services, and Family Interventions. - Dietary and Nutrition Services Patient needs Dietary and Nutrition Services for: Adequate Nutrition, Nutritional Supplements, and Nu tritional Education. - Occupational Therapy Patient needs Occupational Therapy for a daily minimum of 1.5 hours at least 5 out of 7 days, to impr ove Activities of Daily Living, including: Eating, Grooming, Bathing, Dressing, Toileting, Toilet Tra nsfers, Community Reintegration, Higher functional activities, Adaptive Equipment, Splinting, Househo ld Tasks, and Other activities as determined. QI SCORES: - Self-Care A. Eating 05-Setup or clean-up assistance B. Oral hygiene 02-Substantial/maximal assistance C. Toileting hygiene 02-Substantial/maximal assistance E. Shower/bathe self 88-Not attempted due to medical condition or safety concerns F. Upper body dressing 02-Substantial/maximal assistance G. Lower body dressing 02-Substantial/maximal assistance H. Putting on/taking off footwear 02-Substantial/maximal assistance - Mobility A. Roll left and right 02-Substantial/maximal assistance B. Sit to lying 06-Independent C. Lying to sitting on side of bed 06-Independent D. Sit to stand 06-Independent E. Chair/ydg-tw-xyztv transfer 04-Supervision or touching assistance F. Toilet transfer 88-Not attempted due to medical condition or safety concerns G. Car transfer 88-Not attempted due to medical condition or safety concerns I. Walk 10 feet 88-Not attempted due to medical condition or safety concerns J. Walk 50 feet with two turns 88-Not attempted due to medical condition or safety concerns K. Walk 150 feet 88-Not attempted due to medical condition or safety concerns L. Walking 10 feet on uneven surfaces 88-Not attempted due to medical condition or safety concerns M. 1 step (curb) 88-Not attempted due to medical condition or safety concerns N. 4 steps 88-Not attempted due to medical condition or safety concerns O. 12 steps 88-Not attempted due to medical condition or safety concerns P. Picking up object 88-Not attempted due to medical condition or safety concerns R. Wheel 50 feet with two turns 88-Not attempted due to medical condition or safety concerns S. Wheel 150 feet 88-Not attempted due to medical condition or safety concerns - Bladder and Bowel Bladder continence Bowel continence - Endurance Poor - Balance Poor - Safety Awareness Poor POTENTIAL FUNCTIONAL GOALS FOR PATIENT TO ACHIEVE BY DISCHARGE: - Safety Precaution Patient will remain free from falls or injury at time of discharge. - Bed Mobility Patient will perform bed mobility at 4-Elan level of assistance. - Transfers Patient will complete transfers from bed to chair at 4-Elan level of assistance. - Mobility Patient will ambulate 150 ft with 4-Elan level of assistance with RW. PATIENT REHAB POTENTIAL Aubrey BARRERA is able and expected to receive 3 hours of individualized therapy daily on at least 5 of every 7 days Aubrey BARRERA's prognosis for significant practical improvement within a reasonable period of time appears Good Expected level of measurable improvement will be of a practical value to Aubrey BARRERA's functiona l capacity or adaptations to impairments Has a viable Discharge Plan Medically appropriate; condition is sufficiently stable to participate in intensive rehab program DISCHARGE PLAN: - Estimated Length of Stay (days) 13. - Consensus on plan Discharge plan has been discussed with primary caregiver. Patient/Family is in agreement with the americo n. Primary caregiver is in agreement with the plan. - Patient/Family Goals Return home independently. - Planned Living Setting Upon Discharge Home, to live with Family/Relatives. Transitional Living. CONCLUSION ON REHABILITATION NECESSITY: I have evaluated patient's pre-admission functional status and, comparing it to the patient's post-ad mission functional status now, I conclude that the pre-admission assessment was accurate. Patient's c ondition on admission supports the medical necessity of admission to IRF. It is safe to proceed with patient's therapy program. 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
[2021-09-27] MEDS: FEXOFENADINE 180 MG TAB PO PRN (18:38)
[2021-09-28] MEDS ORDERED: DULERA 100/5 (MOMETASONE/FORMOTEROL) INHALER IH PRN (07:06)
[2021-09-28] MEDS: TIOTROPIUM 5 SPRAYS/INHALER IH SCH (07:59)
[2021-09-28] MEDS: CYCLOBENZAPRINE 10 MG TAB PO SCH (08:00)
[2021-09-28] MEDS: METOPROLOL TAR 50 MG TAB PO SCH ×2 (08:01→20:00)
[2021-09-28] MEDS: hydroCHLOROthiazide 25 MG TAB PO SCH (08:01)
[2021-09-28] MEDS: VALSARTAN 160 MG TAB PO SCH ×2 (08:02→20:00)
[2021-09-28] MEDS: AMOX/K CLAV 875 MG TAB PO SCH ×2 (08:02→20:01)
[2021-09-28] MEDS: APIXABAN 5 MG TABLET PO SCH ×2 (08:02→20:02)
[2021-09-28] MEDS: FLUOXETINE 20 MG CAP PO SCH (08:03)
[2021-09-28] MEDS: Oxycodone HCl/Acetaminophen 1 TAB TAB PO SCH (08:03)
[2021-09-28] MEDS ORDERED: CYCLOBENZAPRINE 10 MG TAB PO PRN (08:08)
[2021-09-28] MEDS: Oxycodone HCl/Acetaminophen 1 TAB TAB PO PRN ×2 (12:47→20:05)
[2021-09-28] MEDS: NYSTATIN PWDR 100000 UNIT/GM TOP PRN (20:00)
[2021-09-28] MEDS: ALPRAZOLAM 0.5 MG TABLET PO PRN (20:05)
[2021-09-28] MEDS: FEXOFENADINE 180 MG TAB PO PRN (20:20)
--- OUTSIDE RECORDS SUMMARY | 2021-09-28 22:06 | XMS REPORT | Continuity of Care Document ---
:1950 Author Organization [facility] t Address [address] [place] [address] Dr. Lau. [address] [place] [address] Care Team Providers Name Role Phone Adeola [...] NO KNOWN Drug [facility] Social [facility] Social Habit Start Date Stop Date Quantity Comments Source Sex Assigned At [birth year] [facility] 00:00:00 00:00:00 [facility] Smoking Status Start Date Stop Date Source Unknown if ever smoked [facility] Medications This patient has no known medications. Procedures Procedure Date / Time Performed Performing Clinician [facility] e ASSIGNMENT OF BENEFITS 2021-08-15 18:31:09 Doctor Unassigned, No [facility] Branch Encounters Start End Encounter Admission Attending Care Care Encounter Source Date/Time Date/Time Type Type Clinicians Facility Department ID 2021-08-15 2021-08-15 Dentist Private Practice Rosemary [facility] Main [facility] 1.2.8 [id number] [id number] Univers 13:34:36 13:49:36 Visit Jamel Bray [id number] [place] [id number] [place] rojas Professio [phone] Ny dical nal 353 Branch [facility] 2021-08-15 2021-08-15 [facility] [id number] Univers 13:30:00 13:30:00 JAMEL [id number] [facility] 2021-08-15 2021-08-15 [facility] [id number] Univers 13:30:00 13:30:00 JAMEL [facility] 2021-08-15 2021-08-15 Orders Doctor CHASIDY [id number] Univers 00:00:00 00:00:00 Only Unassigned, JONATHAN [id number] ity of [place] [facility] [id number] [place] [phone] [place] [address] Branch Results This patient has no known results.
[2021-09-29] MEDS: VALSARTAN 160 MG TAB PO SCH ×2 (08:00→19:56)
[2021-09-29] MEDS: METOPROLOL TAR 50 MG TAB PO SCH ×2 (08:00→19:56)
[2021-09-29] MEDS: hydroCHLOROthiazide 25 MG TAB PO SCH (08:47)
[2021-09-29] MEDS: APIXABAN 5 MG TABLET PO SCH ×2 (08:48→20:49)
[2021-09-29] MEDS: AMOX/K CLAV 875 MG TAB PO SCH ×2 (08:48→20:49)
[2021-09-29] MEDS: FLUOXETINE 20 MG CAP PO SCH (08:49)
[2021-09-29] MEDS: TIOTROPIUM 5 SPRAYS/INHALER IH SCH (08:50)
[2021-09-29] MEDS: ALPRAZOLAM 0.5 MG TABLET PO PRN (20:50)
[2021-09-29] MEDS: Oxycodone HCl/Acetaminophen 1 TAB TAB PO PRN ×2 (20:50→23:00)
[2021-09-30] MEDS: TIOTROPIUM 5 SPRAYS/INHALER IH SCH (07:50)
[2021-09-30] MEDS: NYSTATIN PWDR 100000 UNIT/GM TOP PRN (07:50)
[2021-09-30] MEDS: APIXABAN 5 MG TABLET PO SCH ×2 (07:52→19:49)
[2021-09-30] MEDS: METOPROLOL TAR 50 MG TAB PO SCH ×2 (07:52→19:49)
[2021-09-30] MEDS: hydroCHLOROthiazide 25 MG TAB PO SCH (07:52)
[2021-09-30] MEDS: FLUOXETINE 20 MG CAP PO SCH (07:52)
[2021-09-30] MEDS: AMOX/K CLAV 875 MG TAB PO SCH ×2 (07:52→19:49)
[2021-09-30] MEDS: VALSARTAN 160 MG TAB PO SCH (08:00)
[2021-09-30] MEDS: GABAPENTIN 300 MG CAP PO SCH ×2 (13:37→19:50)
[2021-09-30] MEDS: Oxycodone HCl/Acetaminophen 1 TAB TAB PO PRN (14:10)
[2021-09-30] MEDS ORDERED: GABAPENTIN 300 MG CAP PO SCH (17:00)
--- NOTE | 2021-09-30 17:39 | R.PN ---
PROGRESS NOTES ENCOUNTER DATE AND TIME: 09/30/2021 17:32 (COUNTER PERSON) NAME PAYTON BARRERA DATE OF : 1950 DATE OF ADMISSION: 09/27/2021 12:27 (COUNTER PERSON) UTI and weaknessCHIEF COMPLAINT: Debility after UTI SUBJECTIVE: Pt denied any depression. Pt denied any Shortness of Breath. She reports chronic diffuse pain in her back, legs and arms. She is still able to do her physical the rapy. Gabapentin 300 mg TID is now continued. Self propelled wheelchair 500' with modified independen ce. Ambulated 48' using a rolling walker with contact guard assistance. VITAL SIGNS Temperature: 97.2 F SBP/DBP: 127/67 Pulse: 73 Resp: 16 MEDICATION ALLERGIES: No Known Drug Allergies (NKDA) ENVIRONMENTAL ALLERGIES: None Known - Substance Allergies None Known - Other Allergies None Known NURSING: - Shower allowing shower PRECAUTIONS: - Skin Breakdown Risk skin assessments - O2 saturations monitor O2 levels - Fall Precaution Bed alarm fall bracelet - LE weakness Education with functional mobility - Tremors Monitor tremors while performing functional tasks ACTIVITIES OOB only with supervision THERAPIES: - Dietary and Nutrition Adequate Nutrition. Nutritional Education. Nutritional Supplements. - Occupational Therapy Cognitive Retraining. Visual Perceptual Training. ADL Training. Adaptive Equipment. Community Reinteg ration. Household Tasks. Indep. ADL's- Higher Level Functioning. Patient/Family Education. Safety Karen reness. Transfer Training. UE ROM. UE Strengthening. - Speech Therapy Cognitive Training. Expressive Language Skills. Memory Strategies. Receptive Language Skills. Speech Intelligibility Training. - Physical Therapy Balance Training. Evaluate and Treat. Gait Training. LE ROM. LE Strengthening. Medical Equipment Asse ssment and Evaluation. Mobility Training. Patient/Family Education. Safety Awareness. Transfer Traini ng. Wheelchair Management. PHYSICAL EXAM - Gen Alert and awake Lying in bed No apparent distress Oriented to: person, time, and place - Skin No breakdown No abnormalities - Eyes No abnormalities - ENMT No abnormalities - Neck No abnormalities - CVS RRR - Chest No abnormalities - Abd Obese, soft, nontender - GI Non distended Deferred - No abnormalities - Ext Mild bilateral lower extremity edema. - MSK 4/5 weakness in both lower extremities. - Neuro No focal deficits - Psych No abnormalities ASSESSMENT: Pt. is a 71 yo Right-handed white female.On 09/24/2021 she was admitted to [facility] with diagnosis UTI and weakness.Her impairment category is Medically Complex Conditions 17 - Other Medically Complex Conditions (17.9).Pre-morbidly, Pt. was independent/mod-I in Locomotion, Saf ety Awareness, Social Cognition, Balance, Transfers Control, Sphincter Control, Self-Care, Communicat ion, and Endurance; and she had good Locomotion, Safety Awareness, Social Cognition, Balance, Transfe rs Control, Self-Care, Sphincter Control, Communication, and Endurance.Currently, she has deficits of Locomotion, Safety Awareness, Balance, Transfers Control, Self-Care, and Endurance.Pt. is now referr ed to [facility] for acute in-patient rehabilitation in order to maximize gisela ent's functional independence in activities of daily living, strength, ROM, and mobility.- Rehab Goal patient has realistic goal of being discharged at assistance level partial assist - independent to r eside at Home with Family/Relatives.pa MDM/PLAN: - Physical Therapy Gait dysfunction - to improve, our physical therapists will perform initial evaluation of pt's statu s upon admission and devise an individualized program for Gait Training, and Wheel Chair mobility Inability to transfer - to improve, our physical therapists will perform initial evaluation of pt's status upon admission and devise an individualized program for Bed mobility Need for home safety evaluation - to improve, our physical therapists will perform initial evaluatio n of pt's status upon admission and devise an individualized program for Home Evaluation Need in caregiver upon discharge - to improve, our physical therapists will perform initial evaluati on of pt's status upon admission and devise an individualized program for Caregiver Training New precaution - to improve, our physical therapists will perform initial evaluation of pt's status upon admission and devise an individualized program for Patient precaution education Edema - to improve, our physical therapists will perform initial evaluation of pt's status upon admis rosaura and devise an individualized program for Elevation Training, and Lymphedema Therapy Poor balance - to improve, our physical therapists will perform initial evaluation of pt's status up on admission and devise an individualized program for Balance Training Poor endurance - to improve, our physical therapists will perform initial evaluation of pt's status upon admission and devise an individualized program for Endurance Training Weakness - to improve, our physical therapists will perform initial evaluation of pt's status upon a dmission and devise an individualized program for Aquatic Therapy, Neuromuscular Reeducation, and Str engthening Achieving independence - to improve, our physical therapists will perform initial evaluation of pt's status upon admission and devise an individualized program for Community Reintegration Activities - Occupational Therapy ADL deficits - to improve, our occupation therapists will perform initial evaluation of pt's status upon admission and devise an individualized program for Bathing, Bed mobility, Community Reintegratio n, Cooking, Dressing, Eating, Fine Motor Skills, Grooming, Homemaking, Kitchen Mobility, Laundry, Pat ient Education, Safety Awareness, Splinting - Positioning, Transfers(Toilet, Tub, Shower), and Wheel Chair Management Need for director of primary care - to improve, our occupation therapists will perform initial evaluation of pt's status upon admission and devise an individualized program for Caregiver Training Weakness - to improve, our occupation therapists will perform initial evaluation of pt's status upon admission and devise an individualized program for Aquatic Therapy, Balance, Endurance, UE ROM, and UE strengthening - Other See attached MAR (Medication Administration Record) - Diet Type Continue Regular - Diet - Liquid Texture Continue Regular - Tube Feed Continue N/A - Skin Breakdown Risk skin assessments - Fall Precaution Bed alarm fall bracelet - Diet - Solid Texture Continue Regular - Shower allowing shower - O2 saturations monitor O2 levels - LE weakness Education with functional mobility - Tremors Monitor tremors while performing functional tasks FUNCTIONAL STATUS: UPDATED AT WEEKLY TEAM CONFERENCE - Bladder Same accident frequency: 7-Ind - No accidents in the past 7 days - Bowel Same accident frequency: 7-Ind - No accidents in the past 7 days - Walking Same score based on distance walked: 0(N/A) Same score based on distance walked: 1(<=50ft) - Wheelchair Same score based on distance traveled: 0(N/A) FUNCTIONAL STATUS: - Self-Care A. Eating Ind B. Grooming Kathy C. Bathing sup D. Dressing - Upper Elan E. Dressing - Lower modA F. Toileting modA - Sphincter Control G. Bladder control Elan H. Bowel control Elan - Transfers Control I. Bed/Chair/Wheelchair Elan J. Toilet Elan K. Tub/Shower modA - Locomotion L. Walk/Wheelchair (B) modA M. Stairs Dep - Communication N. Comprehension (B) Kathy O. Expression (B) Kathy - Social Cognition P. Social Interaction Kathy Q. Problem Solving sup R. Memory Ind - Endurance Poor - Balance Fair - Safety Awareness Fair QI SCORES: - Self-Care A. Eating 05-Setup or clean-up assistance B. Oral hygiene 02-Substantial/maximal assistance C. Toileting hygiene 02-Substantial/maximal assistance E. Shower/bathe self 88-Not attempted due to medical condition or safety concerns F. Upper body dressing 02-Substantial/maximal assistance G. Lower body dressing 02-Substantial/maximal assistance H. Putting on/taking off footwear 02-Substantial/maximal assistance - Mobility A. Roll left and right 02-Substantial/maximal assistance B. Sit to lying 06-Independent C. Lying to sitting on side of bed 06-Independent D. Sit to stand 06-Independent E. Chair/env-vg-hyqme transfer 04-Supervision or touching assistance F. Toilet transfer 88-Not attempted due to medical condition or safety concerns G. Car transfer 88-Not attempted due to medical condition or safety concerns I. Walk 10 feet 88-Not attempted due to medical condition or safety concerns J. Walk 50 feet with two turns 88-Not attempted due to medical condition or safety concerns K. Walk 150 feet 88-Not attempted due to medical condition or safety concerns L. Walking 10 feet on uneven surfaces 88-Not attempted due to medical condition or safety concerns M. 1 step (curb) 88-Not attempted due to medical condition or safety concerns N. 4 steps 88-Not attempted due to medical condition or safety concerns O. 12 steps 88-Not attempted due to medical condition or safety concerns P. Picking up object 88-Not attempted due to medical condition or safety concerns R. Wheel 50 feet with two turns 88-Not attempted due to medical condition or safety concerns S. Wheel 150 feet 88-Not attempted due to medical condition or safety concerns - Bladder and Bowel Bladder continence Bowel continence - Endurance Poor - Balance Poor - Safety Awareness Poor CURRENT FUNC. DEFICITS: Self-Care, Mobility, Endurance, Balance, and Safety Awareness SIGNATURE PANEL: (COUNTER PERSON)
[2021-09-30] MEDS: VALSARTAN 80 MG TAB PO SCH (19:50)
[2021-10-01] MEDS: METOPROLOL TAR 50 MG TAB PO SCH ×3 (07:53→20:03)
[2021-10-01] MEDS: FLUOXETINE 20 MG CAP PO SCH (07:53)
[2021-10-01] MEDS: APIXABAN 5 MG TABLET PO SCH ×2 (07:53→20:03)
[2021-10-01] MEDS: hydroCHLOROthiazide 25 MG TAB PO SCH (07:54)
[2021-10-01] MEDS: TIOTROPIUM 5 SPRAYS/INHALER IH SCH (07:55)
[2021-10-01] MEDS: VALSARTAN 80 MG TAB PO SCH ×3 (07:55→20:03)
[2021-10-01] MEDS: GABAPENTIN 300 MG CAP PO SCH ×3 (08:03→20:03)
[2021-10-01] MEDS: Oxycodone HCl/Acetaminophen 1 TAB TAB PO PRN ×2 (13:16→22:39)
--- NOTE | 2021-10-01 17:53 | R.PN ---
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 Pt denied any Shortness of Breath. Glucose 114, Ehs Teacher 0.65, CBC with diff is normal Ambulated 370' total in AM and PM using a rolling walker with modified independence. VITAL SIGNS Temperature: 98.0 F SBP/DBP: 110/69 Pulse: 76 Resp: 16 MEDICATION ALLERGIES: No Known Drug Allergies (NKDA) ENVIRONMENTAL ALLERGIES: None Known - Substance Allergies None Known - Other Allergies None Known NURSING: - Shower allowing shower PRECAUTIONS: - Skin Breakdown Risk skin assessments - O2 saturations monitor O2 levels - Fall Precaution Bed alarm fall bracelet - LE weakness Education with functional mobility - Tremors Monitor tremors while performing functional tasks ACTIVITIES OOB only with supervision THERAPIES: - Dietary and Nutrition Adequate Nutrition. Nutritional Education. Nutritional Supplements. - Occupational Therapy Cognitive Retraining. Visual Perceptual Training. ADL Training. Adaptive Equipment. Community Reinteg ration. Household Tasks. Indep. ADL's- Higher Level Functioning. Patient/Family Education. Safety Karen reness. Transfer Training. UE ROM. UE Strengthening. - Speech Therapy Cognitive Training. Expressive Language Skills. Memory Strategies. Receptive Language Skills. Speech Intelligibility Training. - Physical Therapy Balance Training. Evaluate and Treat. Gait Training. LE ROM. LE Strengthening. Medical Equipment Asse ssment and Evaluation. Mobility Training. Patient/Family Education. Safety Awareness. Transfer Traini ng. Wheelchair Management. PHYSICAL EXAM - Gen Alert and awake Lying in bed No apparent distress Oriented to: person, time, and place - Skin No breakdown No abnormalities - Eyes No abnormalities - ENMT No abnormalities - Neck No abnormalities - CVS RRR - Chest No abnormalities - Abd Obese, soft, nontender - GI Non distended Deferred - No abnormalities - Ext Mild bilateral lower extremity edema. - MSK 4/5 weakness in both lower extremities. - Neuro No focal deficits - Psych No abnormalities ASSESSMENT: Pt. is a 71 yo Right-handed white female.On 09/24/2021 she was admitted to [facility] with diagnosis UTI and weakness.Her impairment category is Medically Complex Conditions 17 - Other Medically Complex Conditions (17.9).Pre-morbidly, Pt. was independent/mod-I in Locomotion, Saf ety Awareness, Social Cognition, Balance, Transfers Control, Sphincter Control, Self-Care, Communicat ion, and Endurance; and she had good Locomotion, Safety Awareness, Social Cognition, Balance, Transfe rs Control, Self-Care, Sphincter Control, Communication, and Endurance.Currently, she has deficits of Locomotion, Safety Awareness, Balance, Transfers Control, Self-Care, and Endurance.Pt. is now referr ed to [facility] for acute in-patient rehabilitation in order to maximize gisela ent's functional independence in activities of daily living, strength, ROM, and mobility.- Rehab Goal patient has realistic goal of being discharged at assistance level partial assist - independent to r eside at Home with Family/Relatives.pa MDM/PLAN: - Physical Therapy Gait dysfunction - to improve, our physical therapists will perform initial evaluation of pt's statu s upon admission and devise an individualized program for Gait Training, and Wheel Chair mobility Inability to transfer - to improve, our physical therapists will perform initial evaluation of pt's status upon admission and devise an individualized program for Bed mobility Need for home safety evaluation - to improve, our physical therapists will perform initial evaluatio n of pt's status upon admission and devise an individualized program for Home Evaluation Need in caregiver upon discharge - to improve, our physical therapists will perform initial evaluati on of pt's status upon admission and devise an individualized program for Caregiver Training New precaution - to improve, our physical therapists will perform initial evaluation of pt's status upon admission and devise an individualized program for Patient precaution education Edema - to improve, our physical therapists will perform initial evaluation of pt's status upon admi ssion and devise an individualized program for Elevation Training, and Lymphedema Therapy Poor balance - to improve, our physical therapists will perform initial evaluation of pt's status up on admission and devise an individualized program for Balance Training Poor endurance - to improve, our physical therapists will perform initial evaluation of pt's status upon admission and devise an individualized program for Endurance Training Weakness - to improve, our physical therapists will perform initial evaluation of pt's status upon a dmission and devise an individualized program for Aquatic Therapy, Neuromuscular Reeducation, and Str engthening Achieving independence - to improve, our physical therapists will perform initial evaluation of pt's status upon admission and devise an individualized program for Community Reintegration Activities - Occupational Therapy ADL deficits - to improve, our occupation therapists will perform initial evaluation of pt's status upon admission and devise an individualized program for Bathing, Bed mobility, Community Reintegratio n, Cooking, Dressing, Eating, Fine Motor Skills, Grooming, Homemaking, Kitchen Mobility, Laundry, Pat ient Education, Safety Awareness, Splinting - Positioning, Transfers(Toilet, Tub, Shower), and Wheel Chair Management Need for personal care worker - to improve, our occupation therapists will perform initial evaluation of pt's status upon admission and devise an individualized program for Caregiver Training Weakness - to improve, our occupation therapists will perform initial evaluation of pt's status upon admission and devise an individualized program for Aquatic Therapy, Balance, Endurance, UE ROM, and UE strengthening - Other See attached MAR (Medication Administration Record) - Diet Type Continue Regular - Diet - Liquid Texture Continue Regular - Tube Feed Continue N/A - Skin Breakdown Risk skin assessments - Fall Precaution Bed alarm fall bracelet - Diet - Solid Texture Continue Regular - Shower allowing shower - O2 saturations monitor O2 levels - LE weakness Education with functional mobility - Tremors Monitor tremors while performing functional tasks FUNCTIONAL STATUS: UPDATED AT WEEKLY TEAM CONFERENCE - Bladder Same accident frequency: 7-Ind - No accidents in the past 7 days - Bowel Same accident frequency: 7-Ind - No accidents in the past 7 days - Walking Same score based on distance walked: 0(N/A) Same score based on distance walked: 1(<=50ft) - Wheelchair Same score based on distance traveled: 0(N/A) FUNCTIONAL STATUS: - Self-Care A. Eating Ind B. Grooming Kathy C. Bathing sup D. Dressing - Upper Elan E. Dressing - Lower modA F. Toileting modA - Sphincter Control G. Bladder control Elan H. Bowel control Elan - Transfers Control I. Bed/Chair/Wheelchair Elan J. Toilet Elan K. Tub/Shower modA - Locomotion L. Walk/Wheelchair (B) modA M. Stairs Dep - Communication N. Comprehension (B) Kathy O. Expression (B) Kathy - Social Cognition P. Social Interaction Kathy Q. Problem Solving sup R. Memory Ind - Endurance Poor - Balance Fair - Safety Awareness Fair QI SCORES: - Self-Care A. Eating 05-Setup or clean-up assistance B. Oral hygiene 02-Substantial/maximal assistance C. Toileting hygiene 02-Substantial/maximal assistance E. Shower/bathe self 88-Not attempted due to medical condition or safety concerns F. Upper body dressing 02-Substantial/maximal assistance G. Lower body dressing 02-Substantial/maximal assistance H. Putting on/taking off footwear 02-Substantial/maximal assistance - Mobility A. Roll left and right 02-Substantial/maximal assistance B. Sit to lying 06-Independent C. Lying to sitting on side of bed 06-Independent D. Sit to stand 06-Independent E. Chair/aet-ad-wxbde transfer 04-Supervision or touching assistance F. Toilet transfer 88-Not attempted due to medical condition or safety concerns G. Car transfer 88-Not attempted due to medical condition or safety concerns I. Walk 10 feet 88-Not attempted due to medical condition or safety concerns J. Walk 50 feet with two turns 88-Not attempted due to medical condition or safety concerns K. Walk 150 feet 88-Not attempted due to medical condition or safety concerns L. Walking 10 feet on uneven surfaces 88-Not attempted due to medical condition or safety concerns M. 1 step (curb) 88-Not attempted due to medical condition or safety concerns N. 4 steps 88-Not attempted due to medical condition or safety concerns O. 12 steps 88-Not attempted due to medical condition or safety concerns P. Picking up object 88-Not attempted due to medical condition or safety concerns R. Wheel 50 feet with two turns 88-Not attempted due to medical condition or safety concerns S. Wheel 150 feet 88-Not attempted due to medical condition or safety concerns - Bladder and Bowel Bladder continence Bowel continence - Endurance Poor - Balance Poor - Safety Awareness Poor CURRENT FUNC. 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
[2021-10-01] MEDS: ALPRAZOLAM 0.5 MG TABLET PO PRN (22:39)
[2021-10-02] MEDS: TIOTROPIUM 5 SPRAYS/INHALER IH SCH (07:03)
[2021-10-02] MEDS: FLUOXETINE 20 MG CAP PO SCH (07:56)
[2021-10-02] MEDS: APIXABAN 5 MG TABLET PO SCH ×2 (07:56→20:02)
[2021-10-02] MEDS: GABAPENTIN 300 MG CAP PO SCH ×3 (07:56→20:02)
[2021-10-02] MEDS: VALSARTAN 80 MG TAB PO SCH ×2 (07:56→20:00)
[2021-10-02] MEDS: hydroCHLOROthiazide 25 MG TAB PO SCH (07:57)
[2021-10-02] MEDS: METOPROLOL TAR 50 MG TAB PO SCH ×2 (07:58→20:00)
--- NOTE | 2021-10-02 17:29 | R.PN ---
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 Pt denied any Shortness of Breath. Glucose 114, Special Education Educational Assistant 0.65, CBC with diff is normal Ambulated 220' total using a rolling walker with modified independence using 2L of O2 via nasal cannu la. VITAL SIGNS Temperature: 97.6 F SBP/DBP: 116/65 Pulse: 86 Resp: 16 MEDICATION ALLERGIES: No Known Drug Allergies (NKDA) ENVIRONMENTAL ALLERGIES: None Known - Substance Allergies None Known - Other Allergies None Known NURSING: - Shower allowing shower PRECAUTIONS: - Skin Breakdown Risk skin assessments - O2 saturations monitor O2 levels - Fall Precaution Bed alarm fall bracelet - LE weakness Education with functional mobility - Tremors Monitor tremors while performing functional tasks ACTIVITIES OOB only with supervision THERAPIES: - Dietary and Nutrition Adequate Nutrition. Nutritional Education. Nutritional Supplements. - Occupational Therapy Cognitive Retraining. Visual Perceptual Training. ADL Training. Adaptive Equipment. Community Reinteg ration. Household Tasks. Indep. ADL's- Higher Level Functioning. Patient/Family Education. Safety Karen reness. Transfer Training. UE ROM. UE Strengthening. - Speech Therapy Cognitive Training. Expressive Language Skills. Memory Strategies. Receptive Language Skills. Speech Intelligibility Training. - Physical Therapy Balance Training. Evaluate and Treat. Gait Training. LE ROM. LE Strengthening. Medical Equipment Asse ssment and Evaluation. Mobility Training. Patient/Family Education. Safety Awareness. Transfer Traini ng. Wheelchair Management. PHYSICAL EXAM - Gen Alert and awake Lying in bed No apparent distress Oriented to: person, time, and place - Skin No breakdown No abnormalities - Eyes No abnormalities - ENMT No abnormalities - Neck No abnormalities - CVS RRR - Chest No abnormalities - Abd Obese, soft, nontender - GI Non distended Deferred - No abnormalities - Ext Mild bilateral lower extremity edema. - MSK 4/5 weakness in both lower extremities. - Neuro No focal deficits - Psych No abnormalities ASSESSMENT: Pt. is a 71 yo Right-handed white female.On 09/24/2021 she was admitted to [facility] with diagnosis UTI and weakness.Her impairment category is Medically Complex Conditions 17 - Other Medically Complex Conditions (17.9).Pre-morbidly, Pt. was independent/mod-I in Locomotion, Saf ety Awareness, Social Cognition, Balance, Transfers Control, Sphincter Control, Self-Care, Communicat ion, and Endurance; and she had good Locomotion, Safety Awareness, Social Cognition, Balance, Transfe rs Control, Self-Care, Sphincter Control, Communication, and Endurance.Currently, she has deficits of Locomotion, Safety Awareness, Balance, Transfers Control, Self-Care, and Endurance.Pt. is now referr ed to [facility] for acute in-patient rehabilitation in order to maximize gisela ent's functional independence in activities of daily living, strength, ROM, and mobility.- Rehab Goal patient has realistic goal of being discharged at assistance level partial assist - independent to r eside at Home with Family/Relatives.pa MDM/PLAN: - Physical Therapy Gait dysfunction - to improve, our physical therapists will perform initial evaluation of pt's statu s upon admission and devise an individualized program for Gait Training, and Wheel Chair mobility Inability to transfer - to improve, our physical therapists will perform initial evaluation of pt's status upon admission and devise an individualized program for Bed mobility Need for home safety evaluation - to improve, our physical therapists will perform initial evaluatio n of pt's status upon admission and devise an individualized program for Home Evaluation Need in caregiver upon discharge - to improve, our physical therapists will perform initial evaluati on of pt's status upon admission and devise an individualized program for Caregiver Training New precaution - to improve, our physical therapists will perform initial evaluation of pt's status upon admission and devise an individualized program for Patient precaution education Edema - to improve, our physical therapists will perform initial evaluation of pt's status upon admi ssion and devise an individualized program for Elevation Training, and Lymphedema Therapy Poor balance - to improve, our physical therapists will perform initial evaluation of pt's status up on admission and devise an individualized program for Balance Training Poor endurance - to improve, our physical therapists will perform initial evaluation of pt's status upon admission and devise an individualized program for Endurance Training Weakness - to improve, our physical therapists will perform initial evaluation of pt's status upon a dmission and devise an individualized program for Aquatic Therapy, Neuromuscular Reeducation, and Str engthening Achieving independence - to improve, our physical therapists will perform initial evaluation of pt's status upon admission and devise an individualized program for Community Reintegration Activities - Occupational Therapy ADL deficits - to improve, our occupation therapists will perform initial evaluation of pt's status upon admission and devise an individualized program for Bathing, Bed mobility, Community Reintegratio n, Cooking, Dressing, Eating, Fine Motor Skills, Grooming, Homemaking, Kitchen Mobility, Laundry, Pat ient Education, Safety Awareness, Splinting - Positioning, Transfers(Toilet, Tub, Shower), and Wheel Chair Management Need for hospice care consultant - to improve, our occupation therapists will perform initial evaluation of pt's status upon admission and devise an individualized program for Caregiver Training Weakness - to improve, our occupation therapists will perform initial evaluation of pt's status upon admission and devise an individualized program for Aquatic Therapy, Balance, Endurance, UE ROM, and UE strengthening - Other See attached MAR (Medication Administration Record) - Diet Type Continue Regular - Diet - Liquid Texture Continue Regular - Tube Feed Continue N/A - Skin Breakdown Risk skin assessments - Fall Precaution Bed alarm fall bracelet - Diet - Solid Texture Continue Regular - Shower allowing shower - O2 saturations monitor O2 levels - LE weakness Education with functional mobility - Tremors Monitor tremors while performing functional tasks FUNCTIONAL STATUS: UPDATED AT WEEKLY TEAM CONFERENCE - Bladder Same accident frequency: 7-Ind - No accidents in the past 7 days - Bowel Same accident frequency: 7-Ind - No accidents in the past 7 days - Walking Same score based on distance walked: 0(N/A) Same score based on distance walked: 1(<=50ft) - Wheelchair Same score based on distance traveled: 0(N/A) FUNCTIONAL STATUS: - Self-Care A. Eating Ind B. Grooming Kathy C. Bathing sup D. Dressing - Upper Elan E. Dressing - Lower modA F. Toileting modA - Sphincter Control G. Bladder control Elan H. Bowel control Elan - Transfers Control I. Bed/Chair/Wheelchair Elan J. Toilet Elan K. Tub/Shower modA - Locomotion L. Walk/Wheelchair (B) modA M. Stairs Dep - Communication N. Comprehension (B) Kathy O. Expression (B) Kathy - Social Cognition P. Social Interaction Kathy Q. Problem Solving sup R. Memory Ind - Endurance Poor - Balance Fair - Safety Awareness Fair QI SCORES: - Self-Care A. Eating 05-Setup or clean-up assistance B. Oral hygiene 02-Substantial/maximal assistance C. Toileting hygiene 02-Substantial/maximal assistance E. Shower/bathe self 88-Not attempted due to medical condition or safety concerns F. Upper body dressing 02-Substantial/maximal assistance G. Lower body dressing 02-Substantial/maximal assistance H. Putting on/taking off footwear 02-Substantial/maximal assistance - Mobility A. Roll left and right 02-Substantial/maximal assistance B. Sit to lying 06-Independent C. Lying to sitting on side of bed 06-Independent D. Sit to stand 06-Independent E. Chair/kdl-kf-kbnrm transfer 04-Supervision or touching assistance F. Toilet transfer 88-Not attempted due to medical condition or safety concerns G. Car transfer 88-Not attempted due to medical condition or safety concerns I. Walk 10 feet 88-Not attempted due to medical condition or safety concerns J. Walk 50 feet with two turns 88-Not attempted due to medical condition or safety concerns K. Walk 150 feet 88-Not attempted due to medical condition or safety concerns L. Walking 10 feet on uneven surfaces 88-Not attempted due to medical condition or safety concerns M. 1 step (curb) 88-Not attempted due to medical condition or safety concerns N. 4 steps 88-Not attempted due to medical condition or safety concerns O. 12 steps 88-Not attempted due to medical condition or safety concerns P. Picking up object 88-Not attempted due to medical condition or safety concerns R. Wheel 50 feet with two turns 88-Not attempted due to medical condition or safety concerns S. Wheel 150 feet 88-Not attempted due to medical condition or safety concerns - Bladder and Bowel Bladder continence Bowel continence - Endurance Poor - Balance Poor - Safety Awareness Poor CURRENT FUNC. 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
[2021-10-02] MEDS: Oxycodone HCl/Acetaminophen 1 TAB TAB PO PRN (20:01)
[2021-10-03 06:08] LABS: Absolute Lymphocytes (CBC) 1.2 K/uL (0.7-4.9); Basophils % 0.7 % (0-1.3); Hematocrit 40.2 % (36.0-45.0); Lymphocytes % 26.8 % (15.3-44.8); RBC Red Blood Cell Count 4.58 M/uL (3.86-4.86)
[2021-10-03 06:22] LABS: Albumin 2.8 g/dL (3.4-5.0); Magnesium 2.3 mg/dL (1.8-2.4); Potassium 3.8 mmol/L (3.5-5.1); Prealbumin 20.2 mg/dL (20-40)
[2021-10-03] MEDS: VALSARTAN 80 MG TAB PO SCH (08:00)
[2021-10-03] MEDS: hydroCHLOROthiazide 25 MG TAB PO SCH (08:20)
[2021-10-03] MEDS: METOPROLOL TAR 50 MG TAB PO SCH (08:25)
[2021-10-03] MEDS: APIXABAN 5 MG TABLET PO SCH ×2 (08:26→19:24)
[2021-10-03] MEDS: FLUOXETINE 20 MG CAP PO SCH (08:27)
[2021-10-03] MEDS: GABAPENTIN 300 MG CAP PO SCH ×3 (08:27→19:24)
[2021-10-03] MEDS: TIOTROPIUM 5 SPRAYS/INHALER IH SCH (08:28)
[2021-10-03] MEDS: NYSTATIN PWDR 100000 UNIT/GM TOP PRN (08:29)
--- NOTE | 2021-10-03 18:00 | R.PN ---
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 Pt denied any Shortness of Breath. Glucose 111, Laboratory Helper 0.77, prealbumin 20.2, CBC with diff is normal Ambulated 210' total using a rolling walker with modified independence using 2L of O2 via nasal cannu la. Walked indoors/outdoors 1000' with independence. VITAL SIGNS Temperature: 97.0 F SBP/DBP: 120/69 Pulse: 53 Resp: 16 MEDICATION ALLERGIES: No Known Drug Allergies (NKDA) ENVIRONMENTAL ALLERGIES: None Known - Substance Allergies None Known - Other Allergies None Known NURSING: - Shower allowing shower PRECAUTIONS: - Skin Breakdown Risk skin assessments - O2 saturations monitor O2 levels - Fall Precaution Bed alarm fall bracelet - LE weakness Education with functional mobility - Tremors Monitor tremors while performing functional tasks ACTIVITIES OOB only with supervision THERAPIES: - Dietary and Nutrition Adequate Nutrition. Nutritional Education. Nutritional Supplements. - Occupational Therapy Cognitive Retraining. Visual Perceptual Training. ADL Training. Adaptive Equipment. Community Reinteg ration. Household Tasks. Indep. ADL's- Higher Level Functioning. Patient/Family Education. Safety Karen reness. Transfer Training. UE ROM. UE Strengthening. - Speech Therapy Cognitive Training. Expressive Language Skills. Memory Strategies. Receptive Language Skills. Speech Intelligibility Training. - Physical Therapy Balance Training. Evaluate and Treat. Gait Training. LE ROM. LE Strengthening. Medical Equipment Asse ssment and Evaluation. Mobility Training. Patient/Family Education. Safety Awareness. Transfer Traini ng. Wheelchair Management. PHYSICAL EXAM - Gen Alert and awake Lying in bed No apparent distress Oriented to: person, time, and place - Skin No breakdown No abnormalities - Eyes No abnormalities - ENMT No abnormalities - Neck No abnormalities - CVS RRR - Chest No abnormalities - Abd Obese, soft, nontender - GI Non distended Deferred - No abnormalities - Ext Mild bilateral lower extremity edema. - MSK 4/5 weakness in both lower extremities. - Neuro No focal deficits - Psych No abnormalities ASSESSMENT: Pt. is a 71 yo Right-handed white female.On 09/24/2021 she was admitted to [facility] with diagnosis UTI and weakness.Her impairment category is Medically Complex Conditions 17 - Other Medically Complex Conditions (17.9).Pre-morbidly, Pt. was independent/mod-I in Locomotion, Saf ety Awareness, Social Cognition, Balance, Transfers Control, Sphincter Control, Self-Care, Communicat ion, and Endurance; and she had good Locomotion, Safety Awareness, Social Cognition, Balance, Transfe rs Control, Self-Care, Sphincter Control, Communication, and Endurance.Currently, she has deficits of Locomotion, Safety Awareness, Balance, Transfers Control, Self-Care, and Endurance.Pt. is now referr ed to [facility] for acute in-patient rehabilitation in order to maximize gisela ent's functional independence in activities of daily living, strength, ROM, and mobility.- Rehab Goal patient has realistic goal of being discharged at assistance level partial assist - independent to r eside at Home with Family/Relatives.pa MDM/PLAN: - Physical Therapy Gait dysfunction - to improve, our physical therapists will perform initial evaluation of pt's statu s upon admission and devise an individualized program for Gait Training, and Wheel Chair mobility Inability to transfer - to improve, our physical therapists will perform initial evaluation of pt's status upon admission and devise an individualized program for Bed mobility Need for home safety evaluation - to improve, our physical therapists will perform initial evaluatio n of pt's status upon admission and devise an individualized program for Home Evaluation Need in caregiver upon discharge - to improve, our physical therapists will perform initial evaluati on of pt's status upon admission and devise an individualized program for Caregiver Training New precaution - to improve, our physical therapists will perform initial evaluation of pt's status upon admission and devise an individualized program for Patient precaution education Edema - to improve, our physical therapists will perform initial evaluation of pt's status upon admi ssion and devise an individualized program for Elevation Training, and Lymphedema Therapy Poor balance - to improve, our physical therapists will perform initial evaluation of pt's status up on admission and devise an individualized program for Balance Training Poor endurance - to improve, our physical therapists will perform initial evaluation of pt's status upon admission and devise an individualized program for Endurance Training Weakness - to improve, our physical therapists will perform initial evaluation of pt's status upon a dmission and devise an individualized program for Aquatic Therapy, Neuromuscular Reeducation, and Str engthening Achieving independence - to improve, our physical therapists will perform initial evaluation of pt's status upon admission and devise an individualized program for Community Reintegration Activities - Occupational Therapy ADL deficits - to improve, our occupation therapists will perform initial evaluation of pt's status upon admission and devise an individualized program for Bathing, Bed mobility, Community Reintegratio n, Cooking, Dressing, Eating, Fine Motor Skills, Grooming, Homemaking, Kitchen Mobility, Laundry, Pat ient Education, Safety Awareness, Splinting - Positioning, Transfers(Toilet, Tub, Shower), and Wheel Chair Management Need for vision care associate - to improve, our occupation therapists will perform initial evaluation of pt's status upon admission and devise an individualized program for Caregiver Training Weakness - to improve, our occupation therapists will perform initial evaluation of pt's status upon admission and devise an individualized program for Aquatic Therapy, Balance, Endurance, UE ROM, and UE strengthening - Other See attached MAR (Medication Administration Record) - Diet Type Continue Regular - Diet - Liquid Texture Continue Regular - Tube Feed Continue N/A - Skin Breakdown Risk skin assessments - Fall Precaution Bed alarm fall bracelet - Diet - Solid Texture Continue Regular - Shower allowing shower - O2 saturations monitor O2 levels - LE weakness Education with functional mobility - Tremors Monitor tremors while performing functional tasks FUNCTIONAL STATUS: UPDATED AT WEEKLY TEAM CONFERENCE - Bladder Same accident frequency: 7-Ind - No accidents in the past 7 days - Bowel Same accident frequency: 7-Ind - No accidents in the past 7 days - Walking Same score based on distance walked: 0(N/A) Same score based on distance walked: 1(<=50ft) - Wheelchair Same score based on distance traveled: 0(N/A) FUNCTIONAL STATUS: - Self-Care A. Eating Ind B. Grooming Kathy C. Bathing sup D. Dressing - Upper Elan E. Dressing - Lower modA F. Toileting modA - Sphincter Control G. Bladder control Elan H. Bowel control Elan - Transfers Control I. Bed/Chair/Wheelchair Elan J. Toilet Elan K. Tub/Shower modA - Locomotion L. Walk/Wheelchair (B) modA M. Stairs Dep - Communication N. Comprehension (B) Kathy O. Expression (B) Kathy - Social Cognition P. Social Interaction Kathy Q. Problem Solving sup R. Memory Ind - Endurance Poor - Balance Fair - Safety Awareness Fair QI SCORES: - Self-Care A. Eating 05-Setup or clean-up assistance B. Oral hygiene 02-Substantial/maximal assistance C. Toileting hygiene 02-Substantial/maximal assistance E. Shower/bathe self 88-Not attempted due to medical condition or safety concerns F. Upper body dressing 02-Substantial/maximal assistance G. Lower body dressing 02-Substantial/maximal assistance H. Putting on/taking off footwear 02-Substantial/maximal assistance - Mobility A. Roll left and right 02-Substantial/maximal assistance B. Sit to lying 06-Independent C. Lying to sitting on side of bed 06-Independent D. Sit to stand 06-Independent E. Chair/[id number] transfer 04-Supervision or touching assistance F. Toilet transfer 88-Not attempted due to medical condition or safety concerns G. Car transfer 88-Not attempted due to medical condition or safety concerns I. Walk 10 feet 88-Not attempted due to medical condition or safety concerns J. Walk 50 feet with two turns 88-Not attempted due to medical condition or safety concerns K. Walk 150 feet 88-Not attempted due to medical condition or safety concerns L. Walking 10 feet on uneven surfaces 88-Not attempted due to medical condition or safety concerns M. 1 step (curb) 88-Not attempted due to medical condition or safety concerns N. 4 steps 88-Not attempted due to medical condition or safety concerns O. 12 steps 88-Not attempted due to medical condition or safety concerns P. Picking up object 88-Not attempted due to medical condition or safety concerns R. Wheel 50 feet with two turns 88-Not attempted due to medical condition or safety concerns S. Wheel 150 feet 88-Not attempted due to medical condition or safety concerns - Bladder and Bowel Bladder continence Bowel continence - Endurance Poor - Balance Poor - Safety Awareness Poor CURRENT FUNC. 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
[2021-10-03] MEDS: VALSARTAN 40 MG TAB PO SCH (19:22)
[2021-10-03] MEDS: METOPROLOL TAR 25 MG TAB PO SCH (19:23)
[2021-10-03] MEDS: Oxycodone HCl/Acetaminophen 1 TAB TAB PO PRN (19:26)
[2021-10-03] MEDS: FEXOFENADINE 180 MG TAB PO PRN (19:27)
[2021-10-03] MEDS ORDERED: METOPROLOL TAR 25 MG TAB PO SCH (20:00)
[2021-10-03] MEDS ORDERED: VALSARTAN 40 MG TAB PO SCH (20:00)
[2021-10-03] MEDS: ALPRAZOLAM 0.5 MG TABLET PO PRN (21:28)
[2021-10-04] MEDS: TIOTROPIUM 5 SPRAYS/INHALER IH SCH (06:46)
[2021-10-04 07:11] VITALS: TEMP 97.6
[2021-10-04] MEDS: METOPROLOL TAR 25 MG TAB PO SCH ×2 (08:00→20:48)
[2021-10-04] MEDS: VALSARTAN 40 MG TAB PO SCH ×2 (08:00→20:48)
[2021-10-04] MEDS: GABAPENTIN 300 MG CAP PO SCH ×3 (08:08→20:49)
[2021-10-04] MEDS: APIXABAN 5 MG TABLET PO SCH ×2 (08:08→20:48)
[2021-10-04] MEDS: hydroCHLOROthiazide 25 MG TAB PO SCH (08:08)
[2021-10-04] MEDS: FLUOXETINE 20 MG CAP PO SCH (08:09)
--- NOTE | 2021-10-04 10:06 | P.RH.PN ---
Estimated Length of Stay: 10 Expected Discharge Date: 10/05/21 Discharge Disposition Plan: Home Family Support: Yes Group Home Goal: Mobility, Transfers, Self Care Vital Signs: Last Vital Signs Temp 97.6 F 10/04/21 07:09 Pulse 80 10/04/21 08:08 Resp 18 10/04/21 07:09 BP 110/63 10/04/21 08:08 Pulse Ox 96 10/04/21 07:09 Laboratory: Laboratory Last Values WBC 4.60 K/uL (4.3-10.9) D 10/03/21 05:40 RBC 4.58 M/uL (3.86-4.86) 10/03/21 05:40 Hgb 13.1 g/dL (12.0-15.0) 10/03/21 05:40 Hct 40.2 % (36.0-45.0) 10/03/21 05:40 MCV 87.8 fL (80-100) 10/03/21 05:40 MCH 28.5 pg (27.0-35.0) 10/03/21 05:40 MCHC 32.5 g/dL (32.0-36.0) 10/03/21 05:40 RDW 13.6 % (12.1-15.2) 10/03/21 05:40 Plt Count 161 K/uL (152-406) 10/03/21 05:40 MPV 9.0 fL (7.6-11.3) 10/03/21 05:40 Neutrophils % 58.5 % (41.7-73.7) 10/03/21 05:40 Lymphocytes % 26.8 % (15.3-44.8) 10/03/21 05:40 Monocytes % 12.4 % (3.3-12.3) H 10/03/21 05:40 Eosinophils % 1.6 % (0-4.4) 10/03/21 05:40 Basophils % 0.7 % (0-1.3) 10/03/21 05:40 Absolute Neutrophils 2.7 K/uL (1.8-8.0) 10/03/21 05:40 Absolute Lymphocytes 1.2 K/uL (0.7-4.9) 10/03/21 05:40 Absolute Monocytes 0.6 K/uL (0.1-1.3) 10/03/21 05:40 Absolute Eosinophils 0.1 K/uL (0-0.5) 10/03/21 05:40 Absolute Basophils 0.0 K/uL (0-0.5) 10/03/21 05:40 Sodium 141 mmol/L (136-145) 10/03/21 05:40 Potassium 3.8 mmol/L (3.5-5.1) 10/03/21 05:40 Chloride 103 mmol/L (98-107) 10/03/21 05:40 Carbon Dioxide 34 mmol/L (21-32) H 10/03/21 05:40 BUN 14 mg/dL (7-18) 10/03/21 05:40 Creatinine 0.77 mg/dL (0.55-1.3) 10/03/21 05:40 Estimated GFR 73 mL/min (=/>90) L 10/03/21 05:40 Glucose 111 mg/dL (74-106) H 10/03/21 05:40 POC Glucose 114 mg/dL (65-120) 10/01/21 12:53 Calcium 8.4 mg/dL (8.5-10.1) L 10/03/21 05:40 Magnesium 2.3 mg/dL (1.8-2.4) 10/03/21 05:40 Albumin 2.8 g/dL (3.4-5.0) L 10/03/21 05:40 Prealbumin 20.2 mg/dL (20-40) 10/03/21 05:40 Urine Color Yellow (Yellow) 09/27/21 00:10 Urine Appearance Clear (Clear) 09/27/21 00:10 Urine pH 5.5 (5.0-7.0) 09/27/21 00:10 Ur Specific [place] 1.010 (1.005-1.030) 09/27/21 00:10 Glucose (UA)(Auto) Negative (Negative) 09/27/21 00:10 Urine Ketones Negative (Negative) 09/27/21 00:10 Urine Blood Negative (Negative) 09/27/21 00:10 Urine Nitrite Negative (Negative) 09/27/21 00:10 Urine Bilirubin Negative (Negative) 09/27/21 00:10 Urine Urobilinogen 0.2 mg/dL (0.2-1.0) 09/27/21 00:10 Ur Leukocyte Esterase Negative (Negative) 09/27/21 00:10 Urine RBC <5 /HPF (NONE SEEN) 09/27/21 00:10 Urine WBC <5 /HPF (<5) 09/27/21 00:10 Ur Squamous Epith Cells 10-20 /HPF (NONE SEEN) H 09/27/21 00:10 Urine Bacteria <20 /HPF (<20) 09/27/21 00:10 Urine Mucus 1+ /HPF (NONE SEEN) 09/27/21 00:10 Urine Culture Reflexed Not needed 09/27/21 00:10 Urine Total Protein Negative (Negative) 09/27/21 00:10 Weight: 241 lb 11.2 oz Wound Present: No Closed Surgical Incision Present: No Negative Pressure Wound Therapy Present: No Physician Update: Labs reviewed and are stable. Walking 130' on 2L of O2, transfering independent with a rolling walker. No swallowing problems. On MOCA 28/30. Comment: No skin breakdown reported. Dry heels noted Functional Improvement: Patient has met all short-term and long-term goals at this time, w/ the exception of car transfer, and stairs tx. Patient refuses to attempt stairs. Therapist complies. 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 Please see the Rehabilitation Signature page for all necessary signatures.
[2021-10-04] MEDS: FEXOFENADINE 180 MG TAB PO PRN (20:49)
[2021-10-04] MEDS: Oxycodone HCl/Acetaminophen 1 TAB TAB PO PRN (20:57)
[2021-10-04] MEDS: ALPRAZOLAM 0.5 MG TABLET PO PRN (20:58)
[2021-10-05] MEDS: TIOTROPIUM 5 SPRAYS/INHALER IH SCH (07:18)
[2021-10-05 07:31] VITALS: BP 121/63
[2021-10-05] MEDS: VALSARTAN 40 MG TAB PO SCH (07:55)
[2021-10-05] MEDS: APIXABAN 5 MG TABLET PO SCH (07:55)
[2021-10-05] MEDS: FLUOXETINE 20 MG CAP PO SCH (07:55)
[2021-10-05] MEDS: hydroCHLOROthiazide 25 MG TAB PO SCH (07:55)
[2021-10-05] MEDS: METOPROLOL TAR 25 MG TAB PO SCH (07:56)
[2021-10-05] MEDS: GABAPENTIN 300 MG CAP PO SCH ×2 (07:56→13:43)
[2021-10-05 09:10] VITALS: O2SAT 96
== END 2021-10-05 14:30 | disposition home health service (06) | DRG 948 ==
LOC: 5TH 19:00
PROVIDERS: ADMIT Psychiatry & Neurology Neurology with Special Qualifications in Child Neurology; ATTEND Psychiatry & Neurology Neurology with Special Qualifications in Child Neurology
DX: R53.1 Weakness (principal); Z87.440 Personal history of urinary (tract) infections; I48.91 Unspecified atrial fibrillation; I10 Essential (primary) hypertension; G89.29 Other chronic pain; Z79.01 Long term (current) use of anticoagulants
CPT/HCPCS: 36415; 80048; 81001; 82040; 82947; 83735; 84134; 85025; 87086; 87088; 92523; 97110; 97112; 97116; 97161; 97530; 97542; J7606; U0002